=== PATIENT | female | born 1945 | race Caucasian/White ===

== ENCOUNTER 2017-05-21 18:53 | Emergency (ER) | payer OTHER ==
[~2017-05-21] VITALS: Ht 157.5 cm; Wt 67.7 kg
[~2017-05-21 18:53] MED LIST: ASPEC81 PO; ATOR-14 PO; PROP20TA67 PO
[2017-05-21 19:02] VITALS: TEMP 36.8; Ht 157.5 cm; Wt 67.7 kg
[2017-05-21] MEDS ORDERED: GELATIN SPONGE 12-7MM ONE (19:19)
[2017-05-21] MEDS ORDERED: XYLOCAINE 1%/SOD BICARB 20 ML VIAL INFIL ONE ×2 (19:19→19:30)
[2017-05-21] MEDS ORDERED: GELATIN SPONGE 12-7MM EXT ONE (19:30)
[2017-05-21] MEDS ORDERED: DIPHTHERIA/TETANUS/PERTUSSIS 0.5 ML SYR/VIAL IM. ONE (19:56)
[2017-05-21 20:08] VITALS: BP 158/76; PULSE 67; O2SAT 98
--- NOTE | 2017-05-21 21:06 | EMERGENCY ROOM VISIT NOTE ---
ED Visit Note First contact with patient: 19:09 CHIEF COMPLAINT: Finger laceration HISTORY OF PRESENT ILLNESS: This 71-year-old female patient presents to the emergency department after cutting the left first finger with a kitchen knife about 4 hours ago. The patient states that she was making a sandwich when she accidentally cut the very tip of her left thumb. The bleeding has not stopped. Denies weakness or numbness of the finger. The patient has full range of motion of the fingers. The patient rates the pain as dull and 1/10. The patient denies any other injuries. The patient's tetanus shot is not up to date. REVIEW OF SYSTEMS: A 6 system review of systems was completed with positives and pertinent negatives listed in the HPI. ALLERGIES: Erythromycin MEDICATIONS: EMR PMH: No pertinent chronic medical disease SOCIAL HISTORY: Lives locally with family PHYSICAL EXAM: Vital Signs: Reviewed Nurse's notes, vital signs stable. GENERAL : White female, in no acute distress, well developed, well nourished. SKIN: There is a U-shaped 2.6 cm long laceration on the very distal aspect of the left first finger. The edges gape apart with traction. There is no foreign material in the wound and it looks clean. There is slow bleeding. No deep structures such as tendons, bones, or significant blood vessels are seen in the base of the wound. Extension and flexion of the finger is full and strong. Full range of motion of the wrist and other fingers. Capillary refill less than 2 seconds. Normal sensation to light and sharp touch. EMERGENCY DEPARTMENT COURSE: I examined the patient. Verbal consent was obtained to perform the procedure. Using sterile technique the wound was cleansed with Betadine. 4 ml of 1% buffered lidocaine was used to perform a digital block to anesthetize the patient. The area was sterilely draped. Once the patient was anesthetized, the wound was copiously irrigated under pressure with sterile saline. The wound was explored and there were no deep structures injured. The laceration was repaired using 5 simple interrupted 5-0 nylon sutures. The patient tolerated the procedure well. Hemostasis was achieved. The area was cleaned with sterile saline and dressed with bacitracin ointment and bandage. The patient was given a tetanus booster. The patient was discharged home in good condition. Current/Historical Medications Scheduled Aspirin Enteric Coated (Ecotrin Or Generic *), 81 MG PO QAM Atorvastatin (Lipitor), 10 MG PO DAILY Propranolol (Inderal), 40 MG PO DAILY Propranolol (Inderal), 20 MG PO HS Allergies Coded Allergies: Erythromycin (Verified Allergy, Mild, 09/10/11) Vital Signs Date Time Temp Pulse Resp B/P (MAP) Pulse Ox O2 Delivery O2 Flow Rate FiO2 05/21/17 20:08 67 20 158/76 98 05/21/17 19:02 36.8 78 18 115/64 97 Room Air Medications Administered Medications (Trade) Dose Ordered Sig/Ivonne Route Start Time Stop Time Status Last Admin Dose Admin Diphtheria/ Pertussis/Tetanus Vacc (Adacel Inj) 0.5 ml STK-MED ONCE IM. 05/21/17 19:56 05/21/17 19:57 DC 05/21/17 19:58 0.5 ML Departure Information Impression Primary Impression: Laceration of thumb Dispostion Home / Self-Care Condition GOOD Forms HOME CARE DOCUMENTATION FORM, IMPORTANT VISIT INFORMATION Patient Instructions [facility], ED Laceration All, ED Scar Tips to Minimize Additional Instructions Keep wound clean and dry. Do not allow any crusting or dried blood to accumulate on sutures. If this occurs, use a mild soap/water on a Q-tip to clean the wound. Do not use Peroxide to clean the wound as this can delay healing Use an antibiotic ointment like Bacitracin for 3-4 days, then let wound dry. You may bathe and shower as normal, but DO NOT SOAK the wound. Suture removal in about 8 days with your Family Doctor or in the ER. Return sooner for any signs of infection, increasing redness, swelling, or drainage.
== END 2017-05-21 20:10 | disposition home or self-care (01) ==
LOC: C.EDB 18:55 → C.EDD 20:10
DX: S61.012A Laceration without foreign body of left thumb without damage to nail, initial encounter (principal); W26.0XXA Contact with knife, initial encounter; Y93.G1 Activity, food preparation and clean up; Z88.1 Allergy status to other antibiotic agents; Z79.82 Long term (current) use of aspirin; Z79.899 Other long term (current) drug therapy; Z23 Encounter for immunization

== ENCOUNTER 2021-02-08 13:25 | Inpatient (IN) ==
--- NOTE | 2021-02-08 13:50 | Emergency Department Note ---
Impression & Plan Substernal chest pain ED Provider Note Name: PARRIS BRISENO Age: 75 Sex: F Arrives Via: Ambulance Informant: Patient ED Provider: Bruce Reynoso MD Chief Complaint: chest pain Impression: Substernal Chest Pain Medical Decision Makin yr old female with history GERD, HLP, reactive hypoglycemia and previous Vtach with ablation 2 to 3 years ago. No history of CAD nor previous stenting. She arrives after episode chest pressure with radiation to neck prior to arrival with improvement prior to getting here. Already had ASA 324mg PO at home. EKG with lateral depressions without STEMI findings. CXR clear, labs unremarkable and trop negative. She is not short of breath, not tachy, and not hypoxic with no DVT risks/findings. With findings will need cardiac rule out and hospitalist consulted. I do not feel this is consistent with dissection given resolution of symptoms. On repeat eval she notes some mild epigastric unsettled without signi ficant pain nor radiation and has soft non-tender abdomen. Hospitalist in to evaluate further. Prior Medical Record and Triage/Nursing Notes reviewed by Me Additional history obtained from chart Differentials:Cardiac ischemia, aortic dissection, pulmonary embolism, pneumothorax, pneumonia, pericarditis, myocarditis, esophageal rupture, GERD, cholecystitis, pancreatitis, musculoskeletal, as well as other pathologies. Vital Signs: reviewed and remarkable for no significant abnormalities Labs:Reviewed and remarkable for no significant abnormalities Imaging:See Below EKG:Per My Interpretation: Indication Chest pain: NSR 75 bpm, qtc 439 with intraventricular block. No Ectopy. No Ischemia. Compared to EKG 09/11/11 lateral T wave inversions have improved. Cardiac/Tele Monitoring: Cardiac Monitoring: An Order was placed for continuous cardiac monitoring. The monitor shows a rate of 70 with a normal sinus rhythm. Consults:Dr Konrad Nix Hospitalist Plan: Disposition:Hospitalization. Condition: Good History of Present Illness:75 yr old female arrives for evaluation of chest pain. Patient with episode crushing substernal chest pressure at 11:45am this morning. Symptoms ongoing for 10-15 minutes before resolving. Associated with radiation to neck and upper abdomen. No nausea, vomiting, syncope, palp itations, nor other symptoms. No history of similar symptoms. This occurred at rest and was not associated with exertion. She took 325mg PO ASA prior to arrival. History Vtach s/p ablation 2 to 3 years ago. No history CAD nor stenting. She notes multiple family members with cardiac disease. Patient previous smoker ROS: See above HPI for pertinent positives & negatives. A total of 10 systems reviewed and were otherwise negative. Past Medical History:Vtach, Hyperlipidemia, Anxiety Past Surgical History:Heart Cath Family History:CAD Social History:Retired, ex tobacco user Home Medications:See Below Allergies:Erythromycin Vitals:Blood Pressure: 147/79, Pulse 79, RR 22, T 37.5C, O2 98% on RA Physical Exam: GENERAL: Patient is anxious appearing and in minimal distress. EYES: No scleral icterus, unremarkable pupils. ENT: Mucous membranes moist, no nasal congestion. NECK: No masses appreciated, nomeningismus, trachea is midline. RESPIRATORY: No dyspnea. Clear to auscultation and equal bilaterally. No wheeze, no rhonchi. CARDIOVASCULAR: Regular rate and rhythm.No murmurs, rubs, gallops appreciated. GASTROINTESTINAL: Abdomen soft, non-tender, no peritonitis.Bowel sounds positive.No masses appreciated. BACK: No midline tenderness, no CVA tenderness EXTREMITIES: Normal motion all extremities, no cyanosis, no edema. NEUROLOGIC: Alert and oriented, no acute motor or sensory deficits, no focal weakness, cranial nerves grossly intact. SKIN: No rash, no jaundice, no diaphoresis. PSYCH: Appropriate GCS: 15 ED Course: Times/Reassessments: stable, feeling well. Vague epigastric fullness without other symptoms and unremarkable findings. Bruce Reynoso MD Past Med/Surg History Medical History Depression Dyslipidemia GERD (gastroesophageal reflux disease) Mitral valve prolapse Reactive hypoglycemia Ventricular ectopic complex Surgical History History of cardiac catheterization History of cardiac radiofrequency ablation History of D&C History of lumbar spinal fusion Social History (Updated 02/08/21 @ 17:32 by Destini Pitts PA-C) Smoking Status: Former smoker Tobacco Type: Cigarettes Hx Alcohol Use: No Hx Substance Use: No Preferred Language: Congolese Communication Ability: Effective Agriculturist Required: No Beliefs That Will Affect Care: None Current Living Situation: Spouse Other Information That Helps Us Care for You: No Feels Safe at Home: Yes Safety Concerns: Feels Safe At This Time Assistive Devices: Glasses Allergies Allergies Allergy/AdvReac Type Severity Reaction Status Date / Time erythromycin base Allergy Mild Verified 02/08/21 16:02 Home Meds Home Medications Medication Instructions Recorded Confirmed aspirin 81 mg tablet,delayed 81 mg PO DAILY 02/08/21 02/08/21 release cholecalciferol (vitamin D3) 50 50 mcg PO DAILY 02/08/21 02/08/21 mcg (2,000 unit) tablet diltiazem HCl 120 mg 120 mg PO DAILY 02/08/21 02/08/21 capsule,extended release 24 hr flecainide 100 mg tablet 100 mg PO BID 02/08/21 02/08/21 losartan 50 mg tablet 50 mg PO DAILY 02/08/21 02/08/21 magnesium oxide 400 mg PO DAILY 02/08/21 02/08/21 melatonin 5 mg tablet 5 mg PO HS 02/08/21 02/08/21 oxycodone 5 mg tablet 2.5 mg PO Q6H PRN 02/08/21 02/08/21 pravastatin 40 mg tablet 20 mg PO BID 02/08/21 02/08/21 riboflavin (vitamin B2) 400 mg 400 mg PO DAILY 02/08/21 02/08/21 tablet sertraline 25 mg tablet 25 mg PO QPM 02/08/21 02/08/21 sertraline 50 mg tablet 50 mg PO QPM 02/08/21 02/08/21 Results & Data (ED) Vital Signs Vital Signs - 24 hr 02/08/21 13:25 02/08/21 13:56 02/08/21 15:00 Temperature 37.5 C Temperature Source Oral Pulse Rate 79 Pulse Rate [Right Finger] 78 Pulse Rate from SpO2 Sensor Respiratory Rate 22 18 Blood Pressure 147/79 H Blood Pressure [Right Arm] 115/74 Blood Pressure Mean 101 Blood Pressure Mean [Right Arm] 87 Blood Pressure Position [Right Arm] Sitting Pulse Oximetry 98 96 Oxygen Delivery Method Room Air Room Air Room Air Sepsis Recent Fever Within 48 Hours No Sepsis New/Unexplained Change in Mental Status No Sepsis Action Taken by Nursing No Action Required 02/08/21 16:05 Temperature Temperature Source Pulse Rate Pulse Rate [Right Finger] Pulse Rate from SpO2 Sensor 82 Respiratory Rate 17 Blood Pressure 119/61 Blood Pressure [Right Arm] Blood Pressure Mean 80 Blood Pressure Mean [Right Arm] Blood Pressure Position [Right Arm] Pulse Oximetry 98 Oxygen Delivery Method Sepsis Recent Fever Within 48 Hours Sepsis New/Unexplained Change in Mental Status Sepsis Action Taken by Nursing Laboratory Data Result diagrams: 02/08/21 14:06 02/08/21 14:44 Lab Results 02/08/21 02/08/21 02/08/21 Range/Units 14:06 14:06 14:06 WBC 10.97 H (4.8-10.8) K/uL RBC 3.98 L (4.2-5.4) M/uL Hgb 13.1 (12.0-16.0) g/dL Hct 39.3 (37-47) % MCV 98.7 (80-100) fL MCH 32.9 (25-34) pg MCHC 33.3 (32-36) g/dL RDW Std Deviation 46.2 (36.4-46.3) fL RDW Coeff of Pamela 12.7 (11.5-14.5) % Plt Count 295 (130-400) K/uL MPV 9.6 (7.4-10.4) fL Immature Gran % (Auto) 0.3 % Neut % (Auto) 65.3 % Lymph % (Auto) 24.1 % [place] % (Auto) 9.4 % Eos % (Auto) 0.8 % Baso % (Auto) 0.1 % Neut # (Auto) 7.17 H (1.4-6.5) K/uL Lymph # (Auto) 2.64 (1.2-3.4) K/uL [place] # (Auto) 1.03 H (0.11-0.59) K/uL Eos # (Auto) 0.09 (0-0.5) K/uL Baso # (Auto) 0.01 (0-0.2) K/uL Immature Gran # (Auto) 0.03 H (0.00-0.02) K/uL PT Cancelled INR Cancelled Sodium 137 (136-145) mmol/L Potassium (3.5-5.1) mmol/L Chloride 107 (98-107) mmol/L Carbon Dioxide 23 (21-32) mmol/L Anion Gap 8.0 (3-11) BUN 30 H (7-18) mg/dl Creatinine 0.90 (0.6-1.2) mg/dl Est Cr Clr Drug Dosing 47.8 ml/min Est GFR ( Amer) 72.5 ml/min Est GFR (Non-Af Amer) 62.5 ml/min BUN/Creatinine Ratio 33.0 H (10-20) Glucose 94 (70-99) mg/dl Calcium 8.8 (8.5-10.1) mg/dl Magnesium (1.8-2.4) mg/dl Total Bilirubin 0.4 (0.2-1) mg/dl Direct Bilirubin (0-0.2) mg/dl AST (15-37) U/L ALT 31 (12-78) U/L Alkaline Phosphatase 71 (45-117) U/L Troponin I < 0.015 (0-0.045) ng/ml Total Protein 6.7 (6.4-8.2) gm/dl Albumin 3.3 L (3.4-5.0) gm/dl Lipase 230 (73-393) U/L COVID-19 Eval Order SARS-CoV-2 (PCR) (Negative) 02/08/21 02/08/21 02/08/21 Range/Units 14:06 14:06 14:41 WBC (4.8-10.8) K/uL RBC (4.2-5.4) M/uL Hgb (12.0-16.0) g/dL Hct (37-47) % MCV (80-100) fL MCH (25-34) pg MCHC (32-36) g/dL RDW Std Deviation (36.4-46.3) fL RDW Coeff of Pamela (11.5-14.5) % Plt Count (130-400) K/uL MPV (7.4-10.4) fL Immature Gran % (Auto) % Neut % (Auto) % Lymph % (Auto) % [place] % (Auto) % Eos % (Auto) % Baso % (Auto) % Neut # (Auto) (1.4-6.5) K/uL Lymph # (Auto) (1.2-3.4) K/uL [place] # (Auto) (0.11-0.59) K/uL Eos # (Auto) (0-0.5) K/uL Baso # (Auto) (0-0.2) K/uL Immature Gran # (Auto) (0.00-0.02) K/uL PT 10.0 INR 1.0 Sodium (136-145) mmol/L Potassium (3.5-5.1) mmol/L Chloride (98-107) mmol/L Carbon Dioxide (21-32) mmol/L Anion Gap (3-11) BUN (7-18) mg/dl Creatinine (0.6-1.2) mg/dl Est Cr Clr Drug Dosing ml/min Est GFR ( Amer) ml/min Est GFR (Non-Af Amer) ml/min BUN/Creatinine Ratio (10-20) Glucose (70-99) mg/dl Calcium (8.5-10.1) mg/dl Magnesium (1.8-2.4) mg/dl Total Bilirubin (0.2-1) mg/dl Direct Bilirubin (0-0.2) mg/dl AST (15-37) U/L ALT (12-78) U/L Alkaline Phosphatase (45-117) U/L Troponin I (0-0.045) ng/ml Total Protein (6.4-8.2) gm/dl Albumin (3.4-5.0) gm/dl Lipase (73-393) U/L COVID-19 Eval Order Covid19 at [facility] SARS-CoV-2 (PCR) NEGATIVE (Negative) 02/08/21 Range/Units 14:44 WBC (4.8-10.8) K/uL RBC (4.2-5.4) M/uL Hgb (12.0-16.0) g/dL Hct (37-47) % MCV (80-100) fL MCH (25-34) pg MCHC (32-36) g/dL RDW Std Deviation (36.4-46.3) fL RDW Coeff of Pamela (11.5-14.5) % Plt Count (130-400) K/uL MPV (7.4-10.4) fL Immature Gran % (Auto) % Neut % (Auto) % Lymph % (Auto) % [place] % (Auto) % Eos % (Auto) % Baso % (Auto) % Neut # (Auto) (1.4-6.5) K/uL Lymph # (Auto) (1.2-3.4) K/uL [place] # (Auto) (0.11-0.59) K/uL Eos # (Auto) (0-0.5) K/uL Baso # (Auto) (0-0.2) K/uL Immature Gran # (Auto) (0.00-0.02) K/uL PT INR Sodium (136-145) mmol/L Potassium 4.5 (3.5-5.1) mmol/L Chloride (98-107) mmol/L Carbon Dioxide (21-32) mmol/L Anion Gap (3-11) BUN (7-18) mg/dl Creatinine (0.6-1.2) mg/dl Est Cr Clr Drug Dosing ml/min Est GFR ( Amer) ml/min Est GFR (Non-Af Amer) ml/min BUN/Creatinine Ratio (10-20) Glucose (70-99) mg/dl Calcium (8.5-10.1) mg/dl Magnesium 2.6 H (1.8-2.4) mg/dl Total Bilirubin (0.2-1) mg/dl Direct Bilirubin < 0.1 (0-0.2) mg/dl AST 22 (15-37) U/L ALT (12-78) U/L Alkaline Phosphatase (45-117) U/L Troponin I (0-0.045) ng/ml Total Protein (6.4-8.2) gm/dl Albumin (3.4-5.0) gm/dl Lipase (73-393) U/L COVID-19 Eval Order SARS-CoV-2 (PCR) (Negative) Administered Medications Discontinued Medications Oxycodone HCl (Oxycodone Hcl Ir 5 Mg Tab (Immediate Release)) 2.5 mg PO NOW STA Stop: 02/08/21 14:15 Last Admin: 02/08/21 14:34 Dose: 2.5 mg Documented by: [id number] Imaging Data Radiologist's Impression: Chest X-Ray 02/08/21 13:44 XR chest 1V portable HISTORY: Atypical chest pain COMPARISON: Chest CT 11/20/2012. FINDINGS: Mild biapical pleural thickening, unchanged. The cardiac silhouette remains top normal in size. No pneumothorax. No pleural effusions. No focal lung consolidations to suggest pneumonia. No evidence for pulmonary edema. IMPRESSION: No acute process. ACT 112: Negative or not required by law. Electronically signed by: John Schuster M.D. 02/08/2021 2:23 PM Discharge Plan Visit Data Chief Complaint: Chest Pain Stated Complaint: CHEST PAIN ED Provider: Bruce Reynoso Discharge Problem: Substernal chest pain
[2021-02-08 14:14] LABS: Basophils # (auto) 0.01 K/uL (0-0.2); Basophils % (auto) 0.1 %; Eosinophils # (auto) 0.09 K/uL (0-0.5); Eosinophils % (auto) 0.8 %; Hematocrit (blood only) 39.3 % (37-47); Hemoglobin 13.1 g/dL (12.0-16.0); Immature Granulocytes # (auto) 0.03 K/uL (0.00-0.02); Immature Granulocytes % (auto) 0.3 %; Lymphocytes # (auto) 2.64 K/uL (1.2-3.4); Lymphocytes % (auto) 24.1 %; Mean Corpuscular Hemoglobin 32.9 pg (25-34); Mean Corpuscular Hgb Conc 33.3 g/dL (32-36); Mean Corpuscular Volume 98.7 fL (80-100); Mean Platelet Volume 9.6 fL (7.4-10.4); Monocytes # (auto) 1.03 K/uL (0.11-0.59); Monocytes % (auto) 9.4 %; Neutrophils # (auto) 7.17 K/uL (1.4-6.5); Neutrophils % (auto) 65.3 %; Platelet Count 295 K/uL (130-400); RDW Coefficient of Variation 12.7 % (11.5-14.5); RDW Standard Deviation 46.2 fL (36.4-46.3); Red Blood Count 3.98 M/uL (4.2-5.4); White Blood Count 10.97 K/uL (4.8-10.8)
[2021-02-08] MEDS ORDERED: oxyCODONE HCL IR 5 MG TAB (IMMEDIATE RELEASE) PO STA (14:14)
--- NOTE | 2021-02-08 14:25 | XRay Report ---
XR chest 1V portable HISTORY: Atypical chest pain COMPARISON: Chest CT 11/20/2012. FINDINGS: Mild biapical pleural thickening, unchanged. The cardiac silhouette remains top normal in s ize. No pneumothorax. No pleural effusions. No focal lung consolidations to suggest pneumonia. No kevin dence for pulmonary edema. IMPRESSION: No acute process. ACT 112: Negative or not required by law. Electronically signed by: John Schuster M.D. 02/08/2021 2:23 PM
[2021-02-08 14:43] LABS: Alanine Aminotransferase 31 U/L (12-78); Albumin Level 3.3 gm/dl (3.4-5.0); Alkaline Phosphatase 71 U/L (45-117); Bilirubin,Total 0.4 mg/dl (0.2-1); Blood Urea Nitrogen 30 mg/dl (7-18); Calcium 8.8 mg/dl (8.5-10.1); Carbon Dioxide 23 mmol/L (21-32); Chloride 107 mmol/L (98-107); Creatinine Clr Calc Pharmacy 47.8 ml/min; Est GFR (African American) 72.5 ml/min; Est GFR (Non-African American) 62.5 ml/min; Glucose 94 mg/dl (70-99); Lipase 230 U/L (73-393); Sodium 137 mmol/L (136-145); Total Protein 6.7 gm/dl (6.4-8.2); Troponin I < 0.015 ng/ml (0-0.045)
[2021-02-08 15:07] LABS: Potassium 4.5 mmol/L (3.5-5.1)
[2021-02-08 15:11] LABS: Aspartate Aminotransferase 22 U/L (15-37); Bilirubin Direct < 0.1 mg/dl (0-0.2); Magnesium 2.6 mg/dl (1.8-2.4)
--- NOTE | 2021-02-08 17:37 | History & Physical Report ---
Date of Service February 08, 2021 Assessment & Plan (1) Chest pain: (2) Ventricular ectopic complex: (3) Depression: (4) GERD (gastroesophageal reflux disease): (5) Dyslipidemia: (6) Mitral valve prolapse: (7) Reactive hypoglycemia: Plan: Due to cardiac history and new episode of chest pain today, will admit patient for cardiac monitoring overnight. - Observe on telemetry - Repeat EKG in AM - Serial troponins - Labs in AM - ECHO - Consult cardiology for additional recommendations - Continue home medications as appropriate Pt seen and reviewed with attending physician, Dr. Silvestre. Plan of care discussed and as outlined above. Code Status: Full Code DVT Prophylaxis: Gabby Pitts PA-C Admission and Anticipated Discharge Date Admission Date: 75 yo Lady with PMH of...... History of Present Illness Chief Complaint: Chest Pain Primary Care Provider: Lara Chen MD This is a 75 y/o female with a PMH of complex ventricular ectopy, migraine, dyslipidemia, GERD, reactive hypoglycemia, panic attacks, and depression who pr esents to the ED today via EMS for an episode of crushing substernal chest pain. Pt has a history of ventricular ectopy, which she has followed with cardiology for many years and reports at least two prior ablations - follows with Dr. Villarela with last visit in Nov and was doing well. This morning, she woke up feeling well. She was sitting at home, working online and listening to her talk when she developed crushing chest pain/pressure that she describes as severe. She does note that she was aggravated with her at the time that this started and she is unsure if she is related. Pain radiated to her bilateral neck/jaw and to her upper abdomen. She describes it as "an elephant sitting on my chest." She does have a history of panic attacks in the 1990s but has been doing well for the past twenty years. Today's chest pain does not feel similar to prior panic attacks, at least that she can recall. She took aspirin 325 mg x 1 and called EMS. The pain lasted about 20-30 minutes total - she does not recall anything specific that caused it to go away. She denies associated shortness of breath, dizziness, diaphoresis, palpitations. Cardiac cath in 2016 showed "the coronary arteries have diffuse minor irregularities. Mid LAD with non-obstructive 30% lesion followed by a 50% lesion past the diagonal branch." ECHO in Feb 2020 showed LV EF 55-59%, mildly abnormal LV diastolic dysfunction, mild aortic regurgitation, anterior MV leaflet is mildly thickened, mild posterior mitral leaflet prolapse, mild MR, mild TR, no pulm HTN. Currently chest pain has resolved but she feels a "residual presence" in the upper abdomen. No N/V/D. Allergies Allergy/AdvReac Type Severity Reaction Status Date / Time erythromycin base Allergy Mild Verified 02/08/21 16:02 Home Medications Medication Instructions Recorded Confirmed Type aspirin 81 mg tablet,delayed 81 mg PO DAILY 02/08/21 02/08/21 History release cholecalciferol (vitamin D3) 50 50 mcg PO DAILY 02/08/21 02/08/21 History mcg (2,000 unit) tablet diltiazem HCl 120 mg 120 mg PO DAILY 02/08/21 02/08/21 History capsule,extended release 24 hr flecainide 100 mg tablet 100 mg PO BID 02/08/21 02/08/21 History losartan 50 mg tablet 50 mg PO DAILY 02/08/21 02/08/21 History magnesium oxide 400 mg PO DAILY 02/08/21 02/08/21 History melatonin 5 mg tablet 5 mg PO HS 02/08/21 02/08/21 History oxycodone 5 mg tablet 2.5 mg PO Q6H PRN 02/08/21 02/08/21 History pravastatin 40 mg tablet 20 mg PO BID 02/08/21 02/08/21 History riboflavin (vitamin B2) 400 mg 400 mg PO DAILY 02/08/21 02/08/21 History tablet sertraline 25 mg tablet 25 mg PO QPM 02/08/21 02/08/21 History sertraline 50 mg tablet 50 mg PO QPM 02/08/21 02/08/21 History Past Med/Surg History Medical History Depression Dyslipidemia GERD (gastroesophageal reflux disease) Mitral valve prolapse Reactive hypoglycemia Ventricular ectopic complex Surgical History History of cardiac catheterization History of cardiac radiofrequency ablation History of D&C History of lumbar spinal fusion Social History (Updated 02/08/21 @ 17:32 by Destini Pitts PA-C) Smoking Status: Former smoker Tobacco Type: Cigarettes Hx Alcohol Use: No Hx Substance Use: No Preferred Language: Thai Communication Ability: Effective Steam Cleaner Required: No Beliefs That Will Affect Care: None Current Living Situation: Spouse Other Information That Helps Us Care for You: No Feels Safe at Home: Yes Safety Concerns: Feels Safe At This Time Assistive Devices: Glasses Review of Systems Review of Systems: All systems reviewed & are unremarkable except as noted in HPI & below Constitutional: no fever, no chills, no sweats, no fatigue and no weakness Eyes: no diplopia and no worsening vision Ear, Nose, Mouth, Throat: no nasal congestion, no nasal discharge and no sore throat Respiratory: no cough, no dyspnea and no wheezing Cardiovascular: as per Subjective / HPI; no palpitations, no syncope and no edema Gastrointestinal: as per Subjective / HPI; no nausea, no vomiting, no diarrhea/loose stools and no blood in stools Genitourinary: no dysuria, no urinary frequency, no decreased urination and no hematuria Musculoskeletal: + back pain (chronic but has improved since ESIs last week) Integumentary: no rash and no yellowing of the skin Neurologic: no localized weakness, no paresthesia, no seizure-like activity, no syncope and no headache(s) Psychiatric: as per Subjective / HPI Physical Exam Constitutional: well developed and well nourished; no acute distress Eyes: + anicteric sclerae Neck: trachea midline Respiratory: no respiratory distress and no labored breathing Auscultation: lungs clear to auscultation bilaterally; no rales, no rhonchi and no wheezes Cardiovascular: Rate/Rhythm: regular rate and regular rhythm Heart Sounds: no gallop, no murmur and no cardiac rub Vessels: dorsalis pedis pulses present and radial pulses present Extremities: no calf tenderness and no pedal edema No tenderness on palpation of the chest wall Gastrointestinal (Abdomen): Inspection/Auscultation: normal bowel sounds; abdomen not distended Percussion/Palpation: + abdomen tender (mild epigastric) and abdomen soft Musculoskeletal: Head/Neck/Chest: normocephalic, head atraumatic and neck supple Skin: no rashes, warm and dry Neurologic: moves all extremities; no focal motor deficits Psychiatric: A+Ox3, euthymic affect Results & Data Results & Data ([facility]) Vital Signs (Past 12 Hours) Vital Signs Temp Pulse Pulse Resp BP BP Pulse Ox 02/08/21 15:00 78 18 115/74 96 02/08/21 13:25 37.5 C 79 22 147/79 H 98 Laboratory Results Laboratory Results - last 24 hr 02/08/21 02/08/21 02/08/21 14:06 14:06 14:06 WBC 10.97 H RBC 3.98 L Hgb 13.1 Hct 39.3 MCV 98.7 MCH 32.9 MCHC 33.3 RDW Std Deviation 46.2 RDW Coeff of Pamela 12.7 Plt Count 295 MPV 9.6 Immature Gran % (Auto) 0.3 Neut % (Auto) 65.3 Lymph % (Auto) 24.1 [place] % (Auto) 9.4 Eos % (Auto) 0.8 Baso % (Auto) 0.1 Neut # (Auto) 7.17 H Lymph # (Auto) 2.64 [place] # (Auto) 1.03 H Eos # (Auto) 0.09 Baso # (Auto) 0.01 Immature Gran # (Auto) 0.03 H PT Cancelled INR Cancelled Sodium 137 Potassium Chloride 107 Carbon Dioxide 23 Anion Gap 8.0 BUN 30 H Creatinine 0.90 Est Cr Clr Drug Dosing 47.8 Est GFR ( Amer) 72.5 Est GFR (Non-Af Amer) 62.5 BUN/Creatinine Ratio 33.0 H Glucose 94 Calcium 8.8 Magnesium Total Bilirubin 0.4 Direct Bilirubin AST ALT 31 Alkaline Phosphatase 71 Troponin I < 0.015 Total Protein 6.7 Albumin 3.3 L Lipase 230 COVID-19 Eval Order SARS-CoV-2 (PCR) 02/08/21 02/08/21 02/08/21 14:06 14:06 14:41 WBC RBC Hgb Hct MCV MCH MCHC RDW Std Deviation RDW Coeff of Pamela Plt Count MPV Immature Gran % (Auto) Neut % (Auto) Lymph % (Auto) [place] % (Auto) Eos % (Auto) Baso % (Auto) Neut # (Auto) Lymph # (Auto) [place] # (Auto) Eos # (Auto) Baso # (Auto) Immature Gran # (Auto) PT 10.0 INR 1.0 Sodium Potassium Chloride Carbon Dioxide Anion Gap BUN Creatinine Est Cr Clr Drug Dosing Est GFR ( Amer) Est GFR (Non-Af Amer) BUN/Creatinine Ratio Glucose Calcium Magnesium Total Bilirubin Direct Bilirubin AST ALT Alkaline Phosphatase Troponin I Total Protein Albumin Lipase COVID-19 Eval Order Covid19 at [facility] SARS-CoV-2 (PCR) NEGATIVE 02/08/21 14:44 WBC RBC Hgb Hct MCV MCH MCHC RDW Std Deviation RDW Coeff of Pamela Plt Count MPV Immature Gran % (Auto) Neut % (Auto) Lymph % (Auto) [place] % (Auto) Eos % (Auto) Baso % (Auto) Neut # (Auto) Lymph # (Auto) [place] # (Auto) Eos # (Auto) Baso # (Auto) Immature Gran # (Auto) PT INR Sodium Potassium 4.5 Chloride Carbon Dioxide Anion Gap BUN Creatinine Est Cr Clr Drug Dosing Est GFR ( Amer) Est GFR (Non-Af Amer) BUN/Creatinine Ratio Glucose Calcium Magnesium 2.6 H Total Bilirubin Direct Bilirubin < 0.1 AST 22 ALT Alkaline Phosphatase Troponin I Total Protein Albumin Lipase COVID-19 Eval Order SARS-CoV-2 (PCR) Diagnostic Findings Chest X-ray 02/08/21 - IMPRESSION: No acute process. Medications Administered Discontinued Medications Oxycodone HCl (Oxycodone Hcl Ir 5 Mg Tab (Immediate Release)) 2.5 mg PO NOW STA Stop: 02/08/21 14:15 Last Admin: 02/08/21 14:34 Dose: 2.5 mg Documented by: [id number] Code Status & VTE Plan VTE Prophylaxis Plan VTE Prophylaxis will be ordered: Yes Supervising Physician Co-Signing Physician Notes 75 y/o female with a PMH of complex ventricular ectopy status post ablation x2, heart cath x2, no stents or CABG, migraine, dyslipidemia, GERD, reactive hypoglycemia, panic attacks, and depression who presents to the ED 02/08 via EMS for an episode of crushing substernal chest pain likely result in 20 to 30- minute and patient took aspirin 325 mg. Patient reports improvement/disappearance of her chest pain. Given her cardiac history, will put her on observation, have cardiology see her, trend troponin, EKG in the morning. Upon examination: GENERAL: Alert and oriented x3. NAD, on RA. HEENT: No pallor, no icterus. Pupils equal, round and reactive to light. Oral mucosa moist. NECK: No JVD, no neck masses. HEART: S1 and S2 heard. Regular rate and rhythm. No murmur, no gallop. RESPIRATORY SYSTEM: Normal AP diameter. No accessory muscle use. No wheezing, no crackles. ABDOMEN: Soft, bowel sounds present, nontender, no distention. CENTRAL NERVOUS SYSTEM: Alert and oriented x3. No facial droop. Speech is clear. Obeys simple commands. Moves extremities. EXTREMITIES: No edema, no erythema seen. I have seen and examined the patient and have discussed the case with the provider above. I agree with the assessment and plan as stated.
[2021-02-08] MEDS ORDERED: oxyCODONE HCL IR 5 MG TAB (IMMEDIATE RELEASE) PO PRN (20:31)
[2021-02-08] MEDS ORDERED: NITROGLYCERIN SL 0.4 MG/TAB TAB SL PRN (20:31)
[2021-02-08] MEDS ORDERED: dilTIAZem HCL 120 MG CAPCR PO SCH (20:31)
[2021-02-08] MEDS ORDERED: ACETAMINOPHEN 325 MG TAB PO PRN (20:31)
[2021-02-08] MEDS ORDERED: SERTRALINE HCL 50 MG TABLET PO SCH (21:00)
[2021-02-08] MEDS ORDERED: FLECAINIDE ACETATE 100 MG TABLET PO SCH (21:00)
[2021-02-08] MEDS ORDERED: MELATONIN 3 MG TAB PO SCH (21:30)
[2021-02-08] MEDS ORDERED: NITROGLYCERIN SL 0.4 MG/TAB TAB SL STA (21:54)
[2021-02-08] MEDS ORDERED: Heparin IV Adult Wt-Based Standard *NO* Bolus Protocol ONE (21:55)
--- NOTE | 2021-02-08 21:56 | Communication Note ---
Date of Service: February 08, 2021 Notified of second troponin result 0.673 from 0 Patient with left-sided chest pain complaints relieved by nitroglycerin as per RN. EKG as per my interpretation:Rate 100, NSR, LAD, LAFB, T wave inversion anterolateral leads AP NSTEMI hx CAD as per records Change to full admission Continue home aspirin, statin Rxfor CAD prevention, add IV heparin Await Cardiology input N.p.o. after midnight in anticipation of procedure Will relay to AM provider.
[2021-02-08] MEDS ORDERED: LORazepam 0.25 MG/0.5 ML VIAL IV PRN (21:57)
[2021-02-08] MEDS ORDERED: MoRPHine SULFATE 2 MG/ML CARP IV PRN (21:57)
[2021-02-08] MEDS: SERTRALINE HCL 50 MG TABLET PO SCH (22:07)
[2021-02-08] MEDS: PRAVASTATIN SOD 20 MG TAB PO SCH (22:07)
[2021-02-08] MEDS: LOSARTAN POTASSIUM 50 MG TAB PO SCH (22:09)
[2021-02-08] MEDS ORDERED: HEPARIN SODIUM/DEXTROSE 25,000 UNITS/500 ML BAG IV SCH (22:15)
[2021-02-08 23:06] LABS: Basophils # (auto) 0.01 K/uL (0-0.2); Basophils % (auto) 0.1 %; Eosinophils # (auto) 0.11 K/uL (0-0.5); Eosinophils % (auto) 0.8 %; Hematocrit (blood only) 39.5 % (37-47); Immature Granulocytes # (auto) 0.03 K/uL (0.00-0.02); Immature Granulocytes % (auto) 0.2 %; Lymphocytes # (auto) 2.86 K/uL (1.2-3.4); Lymphocytes % (auto) 20.2 %; Mean Corpuscular Hemoglobin 32.5 pg (25-34); Mean Corpuscular Volume 98.8 fL (80-100); Mean Platelet Volume 9.7 fL (7.4-10.4); Monocytes # (auto) 1.36 K/uL (0.11-0.59); Monocytes % (auto) 9.6 %; Neutrophils # (auto) 9.78 K/uL (1.4-6.5); Neutrophils % (auto) 69.1 %; Platelet Count 311 K/uL (130-400); RDW Coefficient of Variation 12.8 % (11.5-14.5); RDW Standard Deviation 46.3 fL (36.4-46.3); White Blood Count 14.15 K/uL (4.8-10.8)
[2021-02-08 23:09] LABS: Mean Corpuscular Hgb Conc 32.9 g/dL (32-36)
[2021-02-08 23:14] LABS: Partial Thromboplastin Ratio 0.9; Partial Thromboplastin Time 24.2 Seconds (21.0-31.0)
[2021-02-09 04:55] LABS: Basophils # (auto) 0.01 K/uL (0-0.2); Basophils % (auto) 0.1 %; Eosinophils # (auto) 0.11 K/uL (0-0.5); Eosinophils % (auto) 0.9 %; Hematocrit (blood only) 40.8 % (37-47); Hemoglobin 13.6 g/dL (12.0-16.0); Immature Granulocytes # (auto) 0.03 K/uL (0.00-0.02); Immature Granulocytes % (auto) 0.3 %; Lymphocytes # (auto) 3.65 K/uL (1.2-3.4); Lymphocytes % (auto) 30.8 %; Mean Corpuscular Hemoglobin 32.9 pg (25-34); Mean Corpuscular Hgb Conc 33.3 g/dL (32-36); Mean Corpuscular Volume 98.8 fL (80-100); Mean Platelet Volume 9.4 fL (7.4-10.4); Monocytes # (auto) 0.99 K/uL (0.11-0.59); Monocytes % (auto) 8.4 %; Neutrophils # (auto) 7.05 K/uL (1.4-6.5); Neutrophils % (auto) 59.5 %; Platelet Count 303 K/uL (130-400); RDW Coefficient of Variation 12.9 % (11.5-14.5); RDW Standard Deviation 46.8 fL (36.4-46.3); Red Blood Count 4.13 M/uL (4.2-5.4); White Blood Count 11.84 K/uL (4.8-10.8)
[2021-02-09 05:11] LABS: BUN Creatinine Ratio 27.2 (10-20); Calcium 9.4 mg/dl (8.5-10.1); Creatinine Clr Calc Pharmacy 48.4 ml/min; Est GFR (African American) 73.5 ml/min; Est GFR (Non-African American) 63.4 ml/min; Magnesium 2.5 mg/dl (1.8-2.4)
[2021-02-09 05:15] LABS: Partial Thromboplastin Ratio 2.4
[2021-02-09 05:26] LABS: Troponin I 0.44 ng/ml (0-0.045)
[2021-02-09] MEDS: ASPIRIN 81 MG ECTAB PO SCH (08:43)
[2021-02-09] MEDS: MAGNESIUM OXIDE 400 MG TAB PO SCH (08:44)
[2021-02-09] MEDS: PRAVASTATIN SOD 20 MG TAB PO SCH (08:44)
[2021-02-09] MEDS: LOSARTAN POTASSIUM 50 MG TAB PO SCH (08:44)
[2021-02-09] MEDS: CHOLECALCIFEROL 1,000 UNITS 25 MCG TAB PO SCH (08:44)
[2021-02-09] MEDS ORDERED: NON-FORMULARY MEDICATION (Riboflavin (Vitamin B2) 400 mg Tablet) PO SCH (09:00)
--- NOTE | 2021-02-09 09:10 | Electrocardiogram Report ---
Test Reason : Blood Pressure : / mmHG Vent. Rate : 075 BPM Atrial Rate : 075 BPM P-R Int : 186 ms QRS Dur : 128 ms QT Int : 394 ms P-R-T Axes : 062 -31 068 degrees QTc Int : 439 ms Normal sinus rhythm Left axis deviation Nonspecific ST and T wave abnormality Anterolateral leads Non-specific intra-ventricular conduction block Abnormal ECG When compared with ECG of 11-SEP-2011 14:19, Premature ventricular complexes are no longer Present QRS duration has increased T wave inversion no longer evident in Lateral leads Confirmed by Adrian Chand ([id number]) on 02/09/2021 9:10:05 AM Referred By: Confirmed By:Adrian Chand
--- NOTE | 2021-02-09 09:22 | Electrocardiogram Report ---
Test Reason : Blood Pressure : / mmHG Vent. Rate : 100 BPM Atrial Rate : 100 BPM P-R Int : 172 ms QRS Dur : 124 ms QT Int : 368 ms P-R-T Axes : 071 -49 026 degrees QTc Int : 474 ms Normal sinus rhythm Left axis deviation Non-specific intra-ventricular conduction delay Abnormal ECG When compared with ECG of 08-FEB-2021 13:32, Nonspecific T wave abnormality, worse in Inferior leads T wave inversion now evident in Anterolateral leads Confirmed by Adrian Chand ([id number]) on 02/09/2021 9:21:50 AM Referred By: REFERRED SELF Confirmed By:Adrian Chand
--- NOTE | 2021-02-09 09:29 | Electrocardiogram Report ---
Test Reason : Blood Pressure : / mmHG Vent. Rate : 081 BPM Atrial Rate : 081 BPM P-R Int : 196 ms QRS Dur : 124 ms QT Int : 468 ms P-R-T Axes : 058 -42 268 degrees QTc Int : 543 ms Normal sinus rhythm Left axis deviation Non-specific intra-ventricular conduction delay Abnormal ECG When compared with ECG of 08-FEB-2021 22:02, Inverted T waves have replaced nonspecific T wave abnormality in Inferior leads QT has lengthened Confirmed by Adrian Chand ([id number]) on 02/09/2021 9:29:13 AM Referred By: REFERRED SELF Confirmed By:Adrian Chand
--- NOTE | 2021-02-09 10:35 | Cardiology Consultation ---
Date of Consultation February 09, 2021 Assessment & Plan (1) Substernal chest pain: (2) Cardiomyopathy: (3) Elevated troponin: (4) Ventricular ectopic complex: Patient is a 75-year-old female with complex history which includes longstanding history of complex ventricular ectopy status post catheter ablation, prior nonischemic cardiomyopathy with return to normal LV function and prior mild nonobstructive coronary disease by past cardiac catheterization. Patient presents this admission having developed sudden onset severe substernal chest pain relieved by sublingual nitroglycerin. EKG demonstrates nonspecific interventricular conduction delay with superimposed new T wave inversions anterolaterally. Troponin moderately elevated and echocardiogram demonstrates new LV dysfunction and apical ballooning pattern. Plan: Hold diltiazem and flecainide with contraindications with current findings including QT prolongation We will schedule diagnostic coronary angiography today procedure and risks explained in detail to the patient. Plan to define coronary anatomy exclude acute ischemic injury Further recommendations after testing History of Present Illness Reason for Consultation: Chest pain, elevated troponin, LV dysfunction Requesting Physician: Dr. 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 Nonischemic cardiomyopathy with return to normal LV systolic function by last echocardiogram February 2020 3. Mild nonobstructive coronary atherosclerosis by cardiac catheterization most recent March 2015 4. Mild mitral valve prolapse. 5. Lumbar spinal stenosis status post injection therapy Patient presents this admission noting no recent change in cardiac status is a day of admission when she developed sudden onset severe chest pressure pain discomfort "elephant sitting on my chest". Symptoms were relieved promptly with sublingual nitroglycerin. Patient has remained asymptomatic since admission EKGs with significant ST segment abnormalities with marked T wave inversion anterolaterally superimposed on nonspecific intermittent conduction delay, troponin elevated Echocardiogram demonstrates diffuse hypokinesis with basal sparing and severe LV dysfunction. Patient denies any recent dizziness lightheadedness syncope or near syncope. Notes no fevers chills or unexplained infections. Notes no acute emotional stress or strain. Back pain issues been ongoing but recently improved after injection therapy. No bleeding difficulties. No contrast allergies or difficulties with sedation. Has lost approximately 20 pounds which she attributes to dietary restriction. No sleep disruption No recent arrhythmia issues. No prior history of myocardial infarction or angina. No signs or symptoms of congestive heart failure orthopnea PND or peripheral Allergies Allergy/AdvReac Type Severity Reaction Status Date / Time erythromycin base Allergy Mild Verified 02/08/21 16:02 Home Medications Medication Instructions Recorded Confirmed Type aspirin 81 mg tablet,delayed 81 mg PO DAILY 02/08/21 02/08/21 History release cholecalciferol (vitamin D3) 50 50 mcg PO DAILY 02/08/21 02/08/21 History mcg (2,000 unit) tablet diltiazem HCl 120 mg 120 mg PO DAILY 02/08/21 02/08/21 History capsule,extended release 24 hr flecainide 100 mg tablet 100 mg PO BID 02/08/21 02/08/21 History losartan 50 mg tablet 50 mg PO DAILY 02/08/21 02/08/21 History magnesium oxide 400 mg PO DAILY 02/08/21 02/08/21 History melatonin 5 mg tablet 5 mg PO HS 02/08/21 02/08/21 History oxycodone 5 mg tablet 2.5 mg PO Q6H PRN 02/08/21 02/08/21 History pravastatin 40 mg tablet 20 mg PO BID 02/08/21 02/08/21 History riboflavin (vitamin B2) 400 mg 400 mg PO DAILY 02/08/21 02/08/21 History tablet sertraline 25 mg tablet 25 mg PO QPM 02/08/21 02/08/21 History sertraline 50 mg tablet 50 mg PO QPM 02/08/21 02/08/21 History Patient History Medical History Depression Dyslipidemia GERD (gastroesophageal reflux disease) Mitral valve prolapse Reactive hypoglycemia Ventricular ectopic complex Surgical History History of cardiac catheterization History of cardiac radiofrequency ablation History of D&C History of lumbar spinal fusion Social History (Updated 02/08/21 @ 17:32 by Destini Pitts PA-C) Smoking Status: Former smoker Tobacco Type: Cigarettes Hx Alcohol Use: No Hx Substance Use: No Preferred Language: Montserratian Communication Ability: Effective Grain Spouter Required: No Beliefs That Will Affect Care: None Current Living Situation: Spouse Other Information That Helps Us Care for You: No Feels Safe at Home: Yes Safety Concerns: Feels Safe At This Time Assistive Devices: Glasses Review of Systems Review of Systems: All systems reviewed & are unremarkable except as noted in HPI & below Physical Exam Constitutional: + thin; no acute distress Eyes: PERRL, conjunctivae normal, anicteric sclerae ENMT: external ear and nose normal, oropharynx normal Neck: trachea midline, no thyromegaly Respiratory: normal respiratory effort, lungs clear to auscultation Cardiovascular: Rate/Rhythm: regular rate and regular rhythm Heart Sounds: normal S1 and normal S2; no gallop and no murmur Palpation: normal PMI Vessels: normal carotid upstroke and radial pulses present; no JVD and no carotid bruit Extremities: no edema Gastrointestinal (Abdomen): normal bowel sounds, soft, nontender, no hepatosplenomegaly Musculoskeletal: no cyanosis or clubbing, extremities motor strength 5/5 Skin: no rashes, warm and dry Neurologic: PERRL, EOMI, accommodation nl, no face palsy, no dysarthria Psychiatric: A+Ox3, euthymic affect Results & Data ([facility]) Vital Signs (Past 12 Hours) Vital Signs Temp Pulse Resp BP Pulse Ox 02/09/21 08:35 36.7 C 83 15 109/66 98 02/09/21 02:58 37.0 C 79 18 108/66 96 02/08/21 23:28 85 20 126/77 96 Laboratory Results Laboratory Results - last 24 hr 02/08/21 02/08/21 02/08/21 14:06 14:06 14:06 WBC 10.97 H RBC 3.98 L Hgb 13.1 Hct 39.3 MCV 98.7 MCH 32.9 MCHC 33.3 RDW Std Deviation 46.2 RDW Coeff of Pamela 12.7 Plt Count 295 MPV 9.6 Immature Gran % (Auto) 0.3 Neut % (Auto) 65.3 Lymph % (Auto) 24.1 [place] % (Auto) 9.4 Eos % (Auto) 0.8 Baso % (Auto) 0.1 Neut # (Auto) 7.17 H Lymph # (Auto) 2.64 [place] # (Auto) 1.03 H Eos # (Auto) 0.09 Baso # (Auto) 0.01 Immature Gran # (Auto) 0.03 H PT Cancelled INR Cancelled APTT PTT Ratio Sodium 137 Potassium Chloride 107 Carbon Dioxide 23 Anion Gap 8.0 BUN 30 H Creatinine 0.90 Est Cr Clr Drug Dosing 47.8 Est GFR ( Amer) 72.5 Est GFR (Non-Af Amer) 62.5 BUN/Creatinine Ratio 33.0 H Glucose 94 Calcium 8.8 Magnesium Total Bilirubin 0.4 Direct Bilirubin AST ALT 31 Alkaline Phosphatase 71 Troponin I < 0.015 Total Protein 6.7 Albumin 3.3 L Triglycerides Cholesterol LDL Cholesterol, Calc VLDL Cholesterol, Calc HDL Cholesterol Cholesterol/HDL Ratio Lipase 230 COVID-19 Eval Order SARS-CoV-2 (PCR) 02/08/21 02/08/21 02/08/21 14:06 14:06 14:41 WBC RBC Hgb Hct MCV MCH MCHC RDW Std Deviation RDW Coeff of Pamela Plt Count MPV Immature Gran % (Auto) Neut % (Auto) Lymph % (Auto) [place] % (Auto) Eos % (Auto) Baso % (Auto) Neut # (Auto) Lymph # (Auto) [place] # (Auto) Eos # (Auto) Baso # (Auto) Immature Gran # (Auto) PT 10.0 INR 1.0 APTT PTT Ratio Sodium Potassium Chloride Carbon Dioxide Anion Gap BUN Creatinine Est Cr Clr Drug Dosing Est GFR ( Amer) Est GFR (Non-Af Amer) BUN/Creatinine Ratio Glucose Calcium Magnesium Total Bilirubin Direct Bilirubin AST ALT Alkaline Phosphatase Troponin I Total Protein Albumin Triglycerides Cholesterol LDL Cholesterol, Calc VLDL Cholesterol, Calc HDL Cholesterol Cholesterol/HDL Ratio Lipase COVID-19 Eval Order Covid19 at [facility] SARS-CoV-2 (PCR) NEGATIVE 02/08/21 02/08/21 02/08/21 14:44 20:35 22:33 WBC 14.15 H RBC 4.00 L Hgb 13.0 Hct 39.5 MCV 98.8 MCH 32.5 MCHC 32.9 RDW Std Deviation 46.3 RDW Coeff of Pamela 12.8 Plt Count 311 MPV 9.7 Immature Gran % (Auto) 0.2 Neut % (Auto) 69.1 Lymph % (Auto) 20.2 [place] % (Auto) 9.6 Eos % (Auto) 0.8 Baso % (Auto) 0.1 Neut # (Auto) 9.78 H Lymph # (Auto) 2.86 [place] # (Auto) 1.36 H Eos # (Auto) 0.11 Baso # (Auto) 0.01 Immature Gran # (Auto) 0.03 H PT INR APTT PTT Ratio Sodium Potassium 4.5 Chloride Carbon Dioxide Anion Gap BUN Creatinine Est Cr Clr Drug Dosing Est GFR ( Amer) Est GFR (Non-Af Amer) BUN/Creatinine Ratio Glucose Calcium Magnesium 2.6 H Total Bilirubin Direct Bilirubin < 0.1 AST 22 ALT Alkaline Phosphatase Troponin I 0.673 H* Total Protein Albumin Triglycerides Cholesterol LDL Cholesterol, Calc VLDL Cholesterol, Calc HDL Cholesterol Cholesterol/HDL Ratio Lipase COVID-19 Eval Order SARS-CoV-2 (PCR) 02/08/21 02/09/21 02/09/21 22:33 04:48 04:48 WBC 11.84 H RBC 4.13 L Hgb 13.6 Hct 40.8 MCV 98.8 MCH 32.9 MCHC 33.3 RDW Std Deviation 46.8 H RDW Coeff of Pamela 12.9 Plt Count 303 MPV 9.4 Immature Gran % (Auto) 0.3 Neut % (Auto) 59.5 Lymph % (Auto) 30.8 [place] % (Auto) 8.4 Eos % (Auto) 0.9 Baso % (Auto) 0.1 Neut # (Auto) 7.05 H Lymph # (Auto) 3.65 H [place] # (Auto) 0.99 H Eos # (Auto) 0.11 Baso # (Auto) 0.01 Immature Gran # (Auto) 0.03 H PT 10.0 INR 1.0 APTT 24.2 PTT Ratio 0.9 Sodium 139 Potassium 5.0 Chloride 109 H Carbon Dioxide 28 Anion Gap 2.0 L BUN 24 H Creatinine 0.89 Est Cr Clr Drug Dosing 48.4 Est GFR ( Amer) 73.5 Est GFR (Non-Af Amer) 63.4 BUN/Creatinine Ratio 27.2 H Glucose 112 H Calcium 9.4 Magnesium 2.5 H Total Bilirubin Direct Bilirubin AST ALT Alkaline Phosphatase Troponin I 0.440 H* Total Protein Albumin Triglycerides 67 Cholesterol 208 H LDL Cholesterol, Calc 120 VLDL Cholesterol, Calc 13 HDL Cholesterol 75 Cholesterol/HDL Ratio 3 Lipase COVID-19 Eval Order SARS-CoV-2 (PCR) 02/09/21 04:48 WBC RBC Hgb Hct MCV MCH MCHC RDW Std Deviation RDW Coeff of Pamela Plt Count MPV Immature Gran % (Auto) Neut % (Auto) Lymph % (Auto) [place] % (Auto) Eos % (Auto) Baso % (Auto) Neut # (Auto) Lymph # (Auto) [place] # (Auto) Eos # (Auto) Baso # (Auto) Immature Gran # (Auto) PT INR APTT 64.0 H* PTT Ratio 2.4 Sodium Potassium Chloride Carbon Dioxide Anion Gap BUN Creatinine Est Cr Clr Drug Dosing Est GFR ( Amer) Est GFR (Non-Af Amer) BUN/Creatinine Ratio Glucose Calcium Magnesium Total Bilirubin Direct Bilirubin AST ALT Alkaline Phosphatase Troponin I Total Protein Albumin Triglycerides Cholesterol LDL Cholesterol, Calc VLDL Cholesterol, Calc HDL Cholesterol Cholesterol/HDL Ratio Lipase COVID-19 Eval Order SARS-CoV-2 (PCR)
[2021-02-09] MEDS ORDERED: SODIUM CHLORIDE 0.9% 1000ML 1,000 ML IV SCH ×2 (11:00→19:15)
[2021-02-09] MEDS ORDERED: HEPARIN (PORCINE) 1000 UNIT/ML 10 ML (CATH LAB USE ONLY) ONE (12:42)
[2021-02-09] MEDS ORDERED: MIDAZOLAM HCL 1 MG/ML 2ML VIAL ONE ×2 (12:42→13:57)
[2021-02-09] MEDS ORDERED: niCARdipine HCL INJ 2.5 MG/ML 10 ML AMP ONE (12:42)
[2021-02-09] MEDS ORDERED: fentaNYL citrate 100 MCG/2 ML VIAL ONE (12:42)
[2021-02-09] MEDS ORDERED: NITROGLYCERIN/D5W 100MCG/ML 20ML SYR ONE (12:43)
--- NOTE | 2021-02-09 13:32 | Pre Anesthesia Assessment ---
Date of Service February 09, 2021 Pre Sedation Assessment Vital Signs Temp Pulse Pulse Resp BP BP Pulse Ox 02/09/21 12:21 86 17 110/70 100 02/09/21 08:35 36.7 C 83 15 109/66 98 02/09/21 02:58 37.0 C 79 18 108/66 96 02/08/21 23:28 85 20 126/77 96 02/08/21 20:10 36.5 C 90 18 138/76 98 02/08/21 20:00 98 02/08/21 19:00 83 20 120/64 96 02/08/21 18:19 91 H 19 121/65 95 02/08/21 18:17 18 02/08/21 17:01 117/70 02/08/21 16:05 17 119/61 98 02/08/21 15:00 78 18 115/74 96 Pulse Ox 02/09/21 12:21 02/09/21 08:35 02/09/21 02:58 02/08/21 23:28 02/08/21 20:10 98 02/08/21 20:00 02/08/21 19:00 02/08/21 18:19 02/08/21 18:17 02/08/21 17:01 02/08/21 16:05 02/08/21 15:00 Cardiovascular RRR, no murmur, no edema Respiratory normal respiratory effort, lungs clear to auscultation Pre-Sedation Airway Assessment Smoking Status: Former smoker Hx Sleep Apnea: No Short, Thick Neck: No Thyromental Distance: > or= 3.5 Finger Breadths Oral Cavity: + Capped Teeth Mallampati Class: III ASA: ASA3 NPO Status Date of Last Intake of Fluids: 02/08/21 Date of Last Intake of Solid Food: 02/08/21 Procedure Planning Contraindications for Sedation: none Current Medications Reviewed: Yes Notes The planned sedation has been discussed with the patient. Informed Consent was obtained. I have identified the patient, determined the appropriateness of sedation and have assessed the patient immediately prior to the procedure. All medicine(s) and interventions are by my order.
--- NOTE | 2021-02-09 13:37 | Cardiac Catheterization ---
Cardiac Cath Procedure Brief Procedure Date February 09, 2021 Pre-Procedure Diagnosis Pre-Procedure Diagnosis: Non STEMI and Cardiomyopathy AUC Score AUC Score: 7 Post-Procedure Diagnosis Post-Procedure Diagnosis: Severe CAD Procedure(s) Performed Procedure(s) Performed: Coronary Angiography and Left Heart Cath Cider Press Operator Wilmar Santos MD Estimated Blood Loss Estimated Blood Loss: <15cc Medication(s) Medication(s): Fentanyl (12.5 mcg IV), Heparin (2000 units IV), Lidocaine 1% (Local infiltration access site), Nicardipine (250 mcg intra-arterial after arterial sheath insertion) and Versed (1 mg IV) Preliminary Findings Right dominant coronary anatomy Mild diffuse coronary atherosclerosis Single-vessel culprit lesion, 80% mid left anterior descending Coronary angiography: Left main: Long in length normal in caliber with 20% distal taper Left anterior descending: Long type II in distribution. Gives rise to a moderate-sized first diagonal and a large second diagonal branch before continuing to the apex. Within the left anterior descending, there are diffuse luminal irregularities with a 40-50. It gives rise to a conus branch at its origin to small right ventricular branches in its midportion. At the AV groove it gives rise to a long posterior descending artery stenosis proximal to the second diagonal and an 80% stenosis immediately beyond the second diagonal branch. Left circumflex: Moderate caliber, nondominant. It gives rise to obtuse marginal and a posterior lateral branch. There is mild luminal irregularities only Right coronary artery: Large and dominant distribution. It gives rise to a conus branch at its origin, 2 small right ventricular branches in its midportion. At the AV groove it gives rise to a long posterior descending artery and along the AV groove a trivial first posterior ventricular branch and a long terminal posterior ventricular branch which reaches well to the apex. There is mild ectasia and luminal irregularities in the proximal mid right coronary artery. LV angiography: Not performed LV pressure 121/0/15 Catheters: Long 6 Fijian glide radial artery sheath, 5 F[place]ian [place] 5 Fijian straight pigtail Recommendations Recommendations: PCI without planned CABG Anesthesia Start time: 1306, stop time: 1321 Procedural Complication(s) None
--- NOTE | 2021-02-09 13:50 | Cardiac Catheterization ---
Cardiac Cath Procedure Full Procedure Date February 09, 2021 Pre-Procedure Diagnosis Pre-Procedure Diagnosis: Non STEMI and Cardiomyopathy AUC Score AUC Score: 7 Post-Procedure Diagnosis Post-Procedure Diagnosis: Severe CAD Procedure(s) Performed Procedure(s) Performed: Coronary Angiography and Left Heart Cath Flanger Wilmar Santos MD Instrument Technician Apprentice(s) Jen Lynn Estimated Blood Loss Estimated Blood Loss: <15cc Medication(s) Medication(s): Fentanyl (12.5 mcg IV), Heparin (2000 units IV), Lidocaine 1% (Local infiltration access site), Nicardipine (250 mcg intra-arterial after arterial sheath insertion) and Versed (1 mg IV) Summary of Findings Right dominant coronary anatomy Mild diffuse coronary atherosclerosis all vessels Single-vessel culprit disease with long lesion, 50% prior to second diagonal, 80% after in mid left anterior descending Coronary angiography: Left main: Long in length normal in caliber with 20% distal taper Left anterior descending: Long type II in distribution. Gives rise to a moderate-sized first diagonal and a large second diagonal branch before con tinuing to the apex. Within the left anterior descending, there are diffuse luminal irregularities with a 40-50. It gives rise to a conus branch at its origin to small right ventricular branches in its midportion. At the AV groove it gives rise to a long posterior descending artery stenosis proximal to the second diagonal and an 80% stenosis immediately beyond the second diagonal branch. Left circumflex: Moderate caliber, nondominant. It gives rise to 2 small proximal marginal branches, an obtuse marginal and a posterior lateral branch. There is mild luminal irregularities only Right coronary artery: Large and dominant distribution. It gives rise to a conus branch at its origin, 2 small right ventricular branches in its midportion. At the AV groove it gives rise to a long posterior descending artery and along the AV groove a trivial first posterior ventricular branch and a long terminal posterior ventricular branch which reaches well to the apex. There is mild ectasia and luminal irregularities in the proximal mid right coronary artery. LV angiography: Not performed LV pressure 121/0/15 Catheters: Long 6 Nauruan glide radial artery sheath, 5 [place] 5 Nauruan straight pigtail Hemodynamics Rest Ao:: 110/59/83 Final Ao: 122/59/84 LV: 121/0/15 Recommendations Recommendations: PCI without planned CABG Radiation Exposure (mGy) 170 Contrast (mls) 55 Fluids (cc crystalloids) Fluids (cc crystalloids): 45 Anesthesia Start time: 1306, stop time: 1321 Procedural Complication(s) None Disposition PCU I attest to the content of the Intraoperative Record and any orders documented therein. Any exceptions are noted below. [facility] Data: Clinical Dermatologist Cardiac Status Clinical evaluation leading to the procedure 75-year-old female with longstanding history of chronic ventricular ectopy in past nonischemic cardiomyopathy with return to normal LV function who presented having awakened from sleep with rest chest pain relieved by sublingual nitroglycerin. Troponins elevated, new wall motion abnormality involving anterior and apex with diffuse dysfunction CAD Presenation: Non STEMI Anginal Classification: CCS IV Cardiogenic Shock within 24 Hours: No Cardiac Arrest within 24 Hours: No Imaging Studies Past 6 Months: Yes Stress Studies Past 6 Months: No Standard Exercise Test: No Stress Echocardiogram: No Stress Testing w/SPECT MPI: No Cardiac CTA: No Coronary Anatomy Dominant: Right Left Main (% Stenosis): Distal (20) LAD (% Stenosis): Proximal (Mild irregularities) and Mid (50% prior to second diagonal, 80% after) D1 (% Stenosis): Normal D2 (% Stenosis): Normal Circumflex (% Stenosis): Proximal (Mild irregularity) OM1 (% Stenosis): Normal OM2 (% Stenosis): Normal L PL2 (% Stenosis): Normal L PDA (% Stenosis): Normal RCA (% Stenosis): Proximal (Mild ectasia and moderate irregularity) Diagnostic Physicians Name: Wilmar Santos MD Closure Device Recommendations: PCI without planned CABG
[2021-02-09] MEDS ORDERED: CLOPIDOGREL BISULFATE 300 MG TAB ONE (14:25)
--- NOTE | 2021-02-09 14:31 | Post Anesthesia Assessment ---
Date of Service February 09, 2021 Post Sedation Assessment Vital Signs Temp Pulse Pulse Resp BP BP Pulse Ox 02/09/21 12:21 86 17 110/70 100 02/09/21 08:35 98.1 F 83 15 109/66 98 02/09/21 02:58 98.6 F 79 18 108/66 96 02/08/21 23:28 85 20 126/77 96 02/08/21 20:10 97.7 F 90 18 138/76 98 02/08/21 20:00 98 02/08/21 19:00 83 20 120/64 96 02/08/21 18:19 91 H 19 121/65 95 02/08/21 18:17 18 02/08/21 17:01 117/70 02/08/21 16:05 17 119/61 98 02/08/21 15:00 78 18 115/74 96 Pulse Ox 02/09/21 12:21 02/09/21 08:35 02/09/21 02:58 02/08/21 23:28 02/08/21 20:10 98 02/08/21 20:00 02/08/21 19:00 02/08/21 18:19 02/08/21 18:17 02/08/21 17:01 02/08/21 16:05 02/08/21 15:00 Recovery Score Activity: Moves 4 extremities Respiration: Deep Breath/Cough Circulation: +/-20% PreAnes Value Consciousness: Fully Awake Oxygen Saturation: O2 needed for >90% Discharge Sedation Level of Care: Fast Track Phase II Post Sedation Plan On clinical assessment, the patient appears to have tolerated the sedation without complications. Patient is recovering as anticipated. Patient will continue to be monitored by nursing and may be discharged when sedation discharge criteria are met per below protocol. Upon Completions of procedure up to 15 minutes continue every 5 minute vital signs and the P.A.R. score; then discharge to a Phase I or Fast Track to Phase II per the following guidelines: * Discharge Patient to appropriate Phase II area if PAR is 8 or greater or return to pre- procedure baseline. The post - procedure orders will be as directed. * If PAR score is less than 8 or not return to pre-procedure baseline then patient will follow Phase I monitoring till PAR is reached for Phase II. The Phase I may be done in procedure room or may call to secure a Phase I area. * If naloxone or flumazenil are used for reversal, hold in Phase I for continue d monitoring from when last reversal dose was given for a minimum of 60 minutes or longer pending the nurse and/or physician discretion of patient condition before discharge to Phase II. Please call the Sedation Physician to re-evaluate and complete post-note for discharge to Phase II area. Do NOT discharge from procedure sedation or Phase 1 until post- sedation evaluation note is complete by procedure /sedation MD Sedation Discharge Instructions to be given to the patient at discharge to home.
[2021-02-09] MEDS ORDERED: METOPROLOL SUCC 25MG EXT REL TAB PO ONE (14:36)
--- NOTE | 2021-02-09 14:48 | Cardiac Catheterization ---
[facility] Data: Orthopedic Nurse Practitioner Cardiac Status Clinical evaluation leading to the procedure CAD Presenation: Non STEMI Anginal Classification: CCS IV Heart Failure: No Cardiogenic Shock within 24 Hours: No Cardiac Arrest within 24 Hours: No Imaging Studies Past 6 Months: Yes Stress Studies Past 6 Months: No Diagnostic Physicians Name: Josiah Farah MD Status: Elective Closure Device Percutaneous Entry Location: Radial Closure Device: Radial Band Recommendations: PCI without planned CABG PCI Indication: PCI for high risk Non-AUDI Lesion Segment Name: Mid LAD Culprit Artery: Yes Stenosis Prior to Rx (%): 80 Chronic Total Occlusion: No IVUS: No FFR: No Previously Treated Lesion: No Lesion Complexity: Non-High/Non-C Lesion Length (mm): 20 Thrombus Present: Yes Bifurcation Lesion: Yes Guidewire Across Lesion: Stenosis Post-Procedure (%): 0 Post-Procedure MAHAD Flow: 3 Devices(s) Deployed: Yes Yes Intraprocedure Events Significant Disection: No Perforation: No Cardiac Cath Procedure Full Procedure Date February 09, 2021 Pre-Procedure Diagnosis Pre-Procedure Diagnosis: Non STEMI AUC Score AUC Score: 7 Post-Procedure Diagnosis Post-Procedure Diagnosis: Severe CAD and Successful PCI Procedure(s) Performed Procedure(s) Performed: Coronary Angiography, PTCA and Drug Eluting Stent Track Inspecting Supervisor Josiah Farah MD Bag Sewer(s) Jen Lynn Estimated Blood Loss Estimated Blood Loss: 20 Medication(s) Medication(s): Clopidogrel, Fentanyl (12.5 mcg IV), Heparin (2000 units IV), Nicardipine (250 mcg intra-arterial after arterial sheath insertion), Nitroglycerin and Versed (1 mg IV) Summary of Findings Indication: NSTEMI, new LV dysfunction Access: 6 Fr right radial artery Catheters: EBU 3.5 guide Findings: For full details of patient's coronary angiography please see cath report dictated by Dr. Santos. Briefly, patient found to have severe single-vessel disease with long, up to 80% mid LAD stenosis. Decision to proceed with PCI. -- PCI -- Antithrombotic therapy: Heparin, clopidogrel Procedure: Left main cannulated with EBU 3.5 guide Prowater wire passed across lesion into distal vessel Prop Sawyer 50 wire placed into distal detail Mid LAD lesion predilated with 2.5 compliant balloon Dilated lesion stented with 2.75 x 28 mm Xience drug-eluting stent Post stent deployment jailed D2 with nonflow limiting ostial stenosis D2 rewired with new whisper wire. Stent post-dilated with 3.5 noncompliant balloon Ostial/proximal D2 dilated with 2.0 balloon through stent struts IC vasodilators administered for spasm Post procedure MAHAD 3 flow, stent well expanded with minimal residual stenosis. Mild residual ostial stenosis of jailed D2 with MAHAD-3 flow. No other apparent cardiac complications. Arterial Closure: TR band Summary: 1. Successful PCI of mid LAD with single drug-eluting stent (2.75 x 28 mm Xience; postdilated with 3.5 NC). -Ostium of jailed D2 dilated with 2.0 balloon with mild residual stenosis Recommendations: Loaded with clopidogrel 600 mg in Orthopedic Nurse Practitioner Continue dual-antiplatelet therapy for at least 1 year Consult cardiac Rehab Hemodynamics Rest Ao:: 91/45/64 Final Ao: 117/65/89 LV: -- Recommendations Recommendations: PCI without planned CABG Specimens Specimens: None Radiation Exposure (mGy) 427 Contrast (mls) 125 Fluids (cc crystalloids) Fluids (cc crystalloids): 450 Drains Drains: None Anesthesia Start time: 1355, stop time: 1430 Procedural Complication(s) None Disposition PCU I attest to the content of the Intraoperative Record and any orders documented therein. Any exceptions are noted below. [facility] Card Cath Procedure Codes Moderate Sedation Procedure 1: Sedation/Anesthesia: 36591 Mod Sedation by the same physician; Ea [id number] Minutes Stenting Procedure 1: Cardiovascular Stent Procedures: 93892 Perc transcatheter placement of intracoronary stent(s), with ang PG Care Time/CCT Total # of Minutes Spent Total Time Spent with Patient: Total time spent is greater than 50% in coordination of care (as documented) at patient's floor/unit and/or counseling patient:
--- NOTE | 2021-02-09 16:08 | Hospitalist Progress Note ---
Date of Service February 09, 2021 Assessment & Plan (1) NSTEMI (non-ST elevated myocardial infarction): (2) Ventricular ectopic complex: Plan: 75 y/o female with a PMH of complex ventricular ectopy status post ablation x2, heart cath x2, no stents or CABG, migraine, dyslipidemia, GERD, reactive hypoglycemia, panic attacks, and depression who presents to the ED 02/08 via EMS for an episode of crushing substernal chest pain likely resolved in 20 to 30- minute and patient took aspirin 325 mg prior to that. She is being managed for the following: #. Chest pain rule out ACS #. NSTEMI #. Ventricular ectopic complex -history of ablation, on diltiazem and flecainide. #. Mitral valve prolapse: h/o Admitting troponin negative, admitting EKG NSR with nonspecific ST and T wave abnormality in anterolateral leads. Troponin up trended, patient was started on heparin drip 02/08 evening 02/09 echo: Severely reduced ejection fraction [30 to 35%] grade II diastolic dysfunction, mild AR, moderate TR, significant decline in LV systolic function compared to previous study of February 2020. Status post cardiac cath 02/09mid LAD drug-eluting stent placed. Cardiology on board: Hold diltiazem and flecainide due to QT prolongation. Continue with home aspirin, patient started on Plavix 02/09 Await further recommendation from cardiology. #. Depression: #. GERD (gastroesophageal reflux disease): #. Dyslipidemia: - Continue home medications as appropriate Code Status: Full Code DVT Prophylaxis: SCDs, Hep Drip. Admission and Anticipated Discharge Date Admission Date: February 08, 2021 Physical Exam Physical Exam: GENERAL: Alert and oriented x3. NAD, on RA. HEENT: No pallor, no icterus. Pupils equal, round and reactive to light. Oral mucosa moist. NECK: No JVD, no neck masses. HEART: S1 and S2 heard. Regular rate and rhythm. No murmur, no gallop. RESPIRATORY SYSTEM: Normal AP diameter. No accessory muscle use. No wheezing, no crackles. ABDOMEN: Soft, bowel sounds present, nontender, no distention. CENTRAL NERVOUS SYSTEM: Alert and oriented x3. No facial droop. Speech is clear. Obeys simple commands. Moves extremities. EXTREMITIES: No edema, no erythema seen. Results & Data Results & Data ([facility]) Vital Signs (Past 12 Hours) Vital Signs Temp Pulse Resp BP Pulse Ox 02/09/21 15:41 36.7 C 81 18 102/60 97 02/09/21 15:05 81 16 124/67 97 02/09/21 14:50 78 16 110/60 97 02/09/21 14:38 80 16 117/64 97 02/09/21 12:21 86 17 110/70 100 02/09/21 08:35 36.7 C 83 15 109/66 98
[2021-02-09] MEDS: oxyCODONE HCL IR 5 MG TAB (IMMEDIATE RELEASE) PO PRN ×2 (18:00→23:23)
[2021-02-09] MEDS: SERTRALINE HCL 50 MG TABLET PO SCH (19:39)
[2021-02-10 06:43] LABS: Basophils # (auto) 0.01 K/uL (0-0.2); Basophils % (auto) 0.1 %; Eosinophils # (auto) 0.14 K/uL (0-0.5); Eosinophils % (auto) 1.2 %; Hematocrit (blood only) 39.7 % (37-47); Hemoglobin 13.3 g/dL (12.0-16.0); Immature Granulocytes # (auto) 0.02 K/uL (0.00-0.02); Immature Granulocytes % (auto) 0.2 %; Lymphocytes # (auto) 2.22 K/uL (1.2-3.4); Lymphocytes % (auto) 19.6 %; Mean Corpuscular Hemoglobin 32.7 pg (25-34); Mean Corpuscular Hgb Conc 33.5 g/dL (32-36); Mean Corpuscular Volume 97.5 fL (80-100); Mean Platelet Volume 9.7 fL (7.4-10.4); Monocytes # (auto) 1.05 K/uL (0.11-0.59); Monocytes % (auto) 9.3 %; Neutrophils # (auto) 7.91 K/uL (1.4-6.5); Neutrophils % (auto) 69.6 %; Platelet Count 303 K/uL (130-400); RDW Coefficient of Variation 13.1 % (11.5-14.5); RDW Standard Deviation 46.7 fL (36.4-46.3); Red Blood Count 4.07 M/uL (4.2-5.4); White Blood Count 11.35 K/uL (4.8-10.8)
[2021-02-10 06:52] LABS: Partial Thromboplastin Ratio 0.9; Partial Thromboplastin Time 24.7 Seconds (21.0-31.0)
[2021-02-10 07:19] LABS: BUN Creatinine Ratio 26.5 (10-20); Calcium 8.8 mg/dl (8.5-10.1); Creatinine Clr Calc Pharmacy 55.7 ml/min; Est GFR (African American) 84.9 ml/min; Est GFR (Non-African American) 73.2 ml/min; Potassium 3.8 mmol/L (3.5-5.1)
--- NOTE | 2021-02-10 08:01 | Electrocardiogram Report ---
Test Reason : Blood Pressure : / mmHG Vent. Rate : 074 BPM Atrial Rate : 074 BPM P-R Int : 176 ms QRS Dur : 118 ms QT Int : 510 ms P-R-T Axes : 000 -27 -36 degrees QTc Int : 566 ms Normal sinus rhythm Incomplete right bundle branch block Prolonged QT Abnormal ECG When compared with ECG of 09-FEB-2021 19:21, No significant change Confirmed by Adrian Chand ([id number]) on 02/10/2021 8:00:43 AM Referred By: REFERRED SELF Confirmed By:Adrian Chand
--- NOTE | 2021-02-10 08:27 | Electrocardiogram Report ---
Test Reason : Blood Pressure : / mmHG Vent. Rate : 072 BPM Atrial Rate : 072 BPM P-R Int : 190 ms QRS Dur : 116 ms QT Int : 518 ms P-R-T Axes : 042 -41 247 degrees QTc Int : 567 ms Normal sinus rhythm Left axis deviation Low voltage QRS Prolonged QT Abnormal ECG When compared with ECG of 09-FEB-2021 05:41, No significant change was found Confirmed by Adrian Chand ([id number]) on 02/10/2021 8:27:11 AM Referred By: REFERRED SELF Confirmed By:Adrian Chand
[2021-02-10] MEDS: oxyCODONE HCL IR 5 MG TAB (IMMEDIATE RELEASE) PO PRN ×3 (08:33→20:10)
[2021-02-10] MEDS: CLOPIDOGREL BISULFATE 75 MG TAB PO SCH (08:34)
[2021-02-10] MEDS: ASPIRIN 81 MG ECTAB PO SCH (08:34)
[2021-02-10] MEDS: CHOLECALCIFEROL 1,000 UNITS 25 MCG TAB PO SCH (08:34)
[2021-02-10] MEDS: LOSARTAN POTASSIUM 25 MG TAB PO SCH (08:35)
[2021-02-10] MEDS: MAGNESIUM OXIDE 400 MG TAB PO SCH (08:35)
[2021-02-10] MEDS: ROSUVASTATIN CALCIUM 10 MG TAB PO SCH (08:36)
--- NOTE | 2021-02-10 08:43 | Electrocardiogram Report ---
Test Reason : Blood Pressure : / mmHG Vent. Rate : 080 BPM Atrial Rate : 080 BPM P-R Int : 178 ms QRS Dur : 118 ms QT Int : 472 ms P-R-T Axes : 064 -38 256 degrees QTc Int : 544 ms Normal sinus rhythm Left axis deviation Non-specific intra-ventricular conduction delay Prolonged QT Abnormal ECG When compared with ECG of 09-FEB-2021 21:09, T wave inversion more evident in Inferior leads Confirmed by Adrian Chand ([id number]) on 02/10/2021 8:43:28 AM Referred By: REFERRED SELF Confirmed By:Adrian Chand
--- NOTE | 2021-02-10 08:52 | Electrocardiogram Report ---
Test Reason : Blood Pressure : / mmHG Vent. Rate : 077 BPM Atrial Rate : 077 BPM P-R Int : 192 ms QRS Dur : 120 ms QT Int : 498 ms P-R-T Axes : 048 -40 248 degrees QTc Int : 563 ms Normal sinus rhythm Left axis deviation Non-specific intra-ventricular conduction delay Abnormal ECG When compared with ECG of 09-FEB-2021 05:41, No significant change Confirmed by Adrian Chand ([id number]) on 02/10/2021 8:52:04 AM Referred By: REFERRED SELF Confirmed By:Adrian Chand
[2021-02-10] MEDS ORDERED: METOPROLOL SUCC 25MG EXT REL TAB PO SCH (09:00)
--- NOTE | 2021-02-10 10:33 | Cardiology Progress Note ---
Date of Service February 10, 2021 Assessment & Plan (1) Substernal chest pain: (2) Cardiomyopathy: (3) Elevated troponin: (4) Ventricular ectopic complex: (5) Status post insertion of drug-eluting stent into left anterior descending (LAD) artery: (6) NSTEMI (non-ST elevated myocardial infarction): Plan: Patient is a 75-year-old female with complex history which includes longstanding history of complex ventricular ectopy status post catheter ablation, prior n onischemic cardiomyopathy with return to normal LV function and prior mild nonobstructive coronary disease by past cardiac catheterization. Patient presents this admission having developed sudden onset severe substernal chest pain relieved by sublingual nitroglycerin. EKG demonstrates nonspecific interventricular conduction delay with superimposed new T wave inversions anterolaterally. Troponin moderately elevated and echocardiogram demonstrates new LV dysfunction and apical ballooning pattern. Cardiac catheterization demonstrated mid left anterior sending high-grade stenosis with successful drug-eluting stent implantation across branch LAD diagonal. Plan: Blood pressure has been low we will reduce losartan to 25 mg/day, continue metoprolol succinate 12.5 mg/day, dual antiplatelet therapy and clopidogrel and intensification of lipid-lowering therapy with rosuvastatin Cardiac rehab referral We will repeat echocardiogram today to reassess overall LV systolic function, if still significantly impaired discharged with LifeVest Patient ambulate and if clinically stable may be discharged end of day Addendum: Echocardiogram demonstrates slight improvement over LV function however ejection fraction still less than 35%. Given history of past ventricular arrhythmias ischemic cardiomyopathy patient at elevated risk for post hospital arrhythmia. Patient will be discharged on LifeVest Will need cardiology follow-up 1 to 2 weeks time Admission and Anticipated Discharge Date Admission Date: February 08, 2021 Subjective Patient was seen and examined, chart, medications, telemetry reviewed. Blood pressures trended towards low overnight but no further chest pains dizziness or lightheadedness. No arrhythmias on telemetry. Rare ventricular ectopy only. No bleeding difficulties, right radial access site healed. Review of Systems Review of Systems: All systems reviewed & are unremarkable except as noted in Subjective Physical Exam Constitutional: + thin; no acute distress Eyes: PERRL, conjunctivae normal, anicteric sclerae ENMT: Mallampati Class: III Neck: trachea midline, no thyromegaly Respiratory: normal respiratory effort, lungs clear to auscultation Cardiovascular: RRR, no murmur, no edema Rate/Rhythm: regular rate and regular rhythm Heart Sounds: normal S1 and normal S2; no gallop and no murmur Palpation: normal PMI Vessels: normal carotid upstroke and radial pulses present; no JVD and no carotid bruit Extremities: no edema Gastrointestinal (Abdomen): normal bowel sounds, soft, nontender, no hepatosplenomegaly Musculoskeletal: no cyanosis or clubbing, extremities motor strength 5/5 Skin: no rashes, warm and dry Neurologic: PERRL, EOMI, accommodation nl, no face palsy, no dysarthria Psychiatric: A+Ox3, euthymic affect Results & Data ([facility]) Vital Signs (Past 12 Hours) Vital Signs Temp Pulse Resp BP Pulse Ox 02/10/21 08:02 36.6 C 82 18 92/57 L 99 02/10/21 03:45 36.6 C 80 19 95/59 L 94 02/10/21 00:24 36.6 C 76 19 94/50 L 96 Laboratory Results Laboratory Results - last 24 hr 02/09/21 02/09/21 02/10/21 13:26 14:10 06:16 WBC 11.35 H RBC 4.07 L Hgb 13.3 Hct 39.7 MCV 97.5 MCH 32.7 MCHC 33.5 RDW Std Deviation 46.7 H RDW Coeff of Pamela 13.1 Plt Count 303 MPV 9.7 Immature Gran % (Auto) 0.2 Neut % (Auto) 69.6 Lymph % (Auto) 19.6 Grand % (Auto) 9.3 Eos % (Auto) 1.2 Baso % (Auto) 0.1 Neut # (Auto) 7.91 H Lymph # (Auto) 2.22 Grand # (Auto) 1.05 H Eos # (Auto) 0.14 Baso # (Auto) 0.01 Immature Gran # (Auto) 0.02 APTT PTT Ratio Activ Coag Time Kaolin 158 H 301 H Sodium Potassium Chloride Carbon Dioxide Anion Gap BUN Creatinine Est Cr Clr Drug Dosing Est GFR ( Amer) Est GFR (Non-Af Amer) BUN/Creatinine Ratio Glucose Calcium 02/10/21 02/10/21 06:16 06:16 WBC RBC Hgb Hct MCV MCH MCHC RDW Std Deviation RDW Coeff of Pamela Plt Count MPV Immature Gran % (Auto) Neut % (Auto) Lymph % (Auto) Grand % (Auto) Eos % (Auto) Baso % (Auto) Neut # (Auto) Lymph # (Auto) Grand # (Auto) Eos # (Auto) Baso # (Auto) Immature Gran # (Auto) APTT 24.7 PTT Ratio 0.9 Activ Coag Time Kaolin Sodium 138 Potassium 3.8 D Chloride 111 H Carbon Dioxide 21 Anion Gap 6.0 BUN 21 H Creatinine 0.79 Est Cr Clr Drug Dosing 55.7 Est GFR ( Amer) 84.9 Est GFR (Non-Af Amer) 73.2 BUN/Creatinine Ratio 26.5 H Glucose 104 H Calcium 8.8
[2021-02-10] MEDS: METOPROLOL SUCC 25MG EXT REL TAB PO SCH (11:03)
--- NOTE | 2021-02-10 16:43 | Hospitalist Progress Note ---
Date of Service February 10, 2021 Assessment & Plan (1) NSTEMI (non-ST elevated myocardial infarction): (2) Ventricular ectopic complex: Plan: 75 y/o female with a PMH of complex ventricular ectopy status post ablation x2, heart cath x2, no stents or CABG, migraine, dyslipidemia, GERD, reactive hypoglycemia, panic attacks, and depression who presents to the ED 02/08 via EMS for an episode of crushing substernal chest pain likely resolved in 20 to 30- minute and patient took aspirin 325 mg prior to that. She is being managed for the following: #. Chest pain rule out ACS #. NSTEMI #. Ventricular ectopic complex -history of ablation, on diltiazem and flecainide. #. Mitral valve prolapse: h/o Admitting troponin negative, admitting EKG NSR with nonspecific ST and T wave abnormality in anterolateral leads. Troponin up trended, patient was started on heparin drip 02/08 evening 02/09 echo: Severely reduced ejection fraction [30 to 35%] grade II diastolic dysfunction, mild AR, moderate TR, significant decline in LV systolic function compared to previous study of February 2020. Status post cardiac cath 02/09mid LAD drug-eluting stent placed. Cardiology on board: Hold diltiazem and flecainide due to QT prolongation. Cardiac rehab referral. Discharge with [facility]. Follow-up with cardiology in 1 to 2 weeks. Continue with home aspirin, patient started on Plavix 02/09 #. Hypertension Blood pressure running low while in hospital, losartan dose decreased from 50 daily to 25 daily. #. Depression: #. GERD (gastroesophageal reflux disease): #. Dyslipidemia: - Continue home medications as appropriate Code Status: Full Code DVT Prophylaxis: SCDs, Hep Drip. Disposition: Patient can be discharged as soon as [facility] arranged, medically stable, cardiology okay with discharge, will need to follow-up with cardiology in 1 to 2 weeks of discharge. Admission and Anticipated Discharge Date Admission Date: February 08, 2021 Subjective Patient was lying in bed, NAD, on room air, no acute events overnight. Patient is eating okay. Patient denies any fever/headache/chills/chest pain/shortness of breath/other review of symptoms. Physical Exam Physical Exam: GENERAL: Alert and oriented x3. NAD, on RA. HEENT: No pallor, no icterus. Pupils equal, round and reactive to light. Oral mucosa moist. NECK: No JVD, no neck masses. HEART: S1 and S2 heard. Regular rate and rhythm. No murmur, no gallop. RESPIRATORY SYSTEM: Normal AP diameter. No accessory muscle use. No wheezing, no crackles. ABDOMEN: Soft, bowel sounds present, nontender, no distention. CENTRAL NERVOUS SYSTEM: Alert and oriented x3. No facial droop. Speech is clear. Obeys simple commands. Moves extremities. EXTREMITIES: No edema, no erythema seen. Results & Data Results & Data ([facility]) Vital Signs (Past 12 Hours) Vital Signs Temp Pulse Resp BP Pulse Ox 02/10/21 15:57 36.9 C 81 18 110/68 99 02/10/21 11:36 36.9 C 80 18 98/64 L 97 02/10/21 08:02 36.6 C 82 18 92/57 L 99
[2021-02-10] MEDS: SERTRALINE HCL 50 MG TABLET PO SCH (20:12)
[2021-02-11] MEDS: oxyCODONE HCL IR 5 MG TAB (IMMEDIATE RELEASE) PO PRN ×4 (01:34→15:44)
[2021-02-11 07:00] LABS: Partial Thromboplastin Time 25.9 Seconds (21.0-31.0)
[2021-02-11 07:24] LABS: BUN Creatinine Ratio 27.3 (10-20); Creatinine Clr Calc Pharmacy 57.6 ml/min; Est GFR (African American) 88.9 ml/min; Est GFR (Non-African American) 76.7 ml/min; Magnesium 2.5 mg/dl (1.8-2.4); Phosphorus 3.1 mg/dl (2.5-4.9); Potassium 4.1 mmol/L (3.5-5.1)
[2021-02-11] MEDS: METOPROLOL SUCC 25MG EXT REL TAB PO SCH (09:07)
[2021-02-11] MEDS: LOSARTAN POTASSIUM 25 MG TAB PO SCH (09:07)
[2021-02-11] MEDS: CLOPIDOGREL BISULFATE 75 MG TAB PO SCH (09:08)
[2021-02-11] MEDS: CHOLECALCIFEROL 1,000 UNITS 25 MCG TAB PO SCH (09:08)
[2021-02-11] MEDS: ASPIRIN 81 MG ECTAB PO SCH (09:08)
[2021-02-11] MEDS: ROSUVASTATIN CALCIUM 10 MG TAB PO SCH (09:09)
[2021-02-11] MEDS: MAGNESIUM OXIDE 400 MG TAB PO SCH (09:49)
[2021-02-11] MEDS ORDERED: MAGNESIUM HYDROXIDE SUSP 30 ML UDC PO ONE (10:22)
[2021-02-11 12:00] VITALS: TEMP 98.8; O2SAT 97
--- NOTE | 2021-02-11 13:59 | Cardiology Progress Note ---
Date of Service February 11, 2021 Assessment & Plan (1) Substernal chest pain: (2) Cardiomyopathy: (3) Elevated troponin: (4) Ventricular ectopic complex: (5) Status post insertion of drug-eluting stent into left anterior descending (LAD) artery: (6) NSTEMI (non-ST elevated myocardial infarction): Plan: Patient is a 75-year-old female with complex history which includes longstanding history of complex ventricular ectopy status post catheter ablation, prior n onischemic cardiomyopathy with return to normal LV function and prior mild nonobstructive coronary disease by past cardiac catheterization. Patient presents this admission having developed sudden onset severe substernal chest pain relieved by sublingual nitroglycerin. EKG demonstrates nonspecific interventricular conduction delay with superimposed new T wave inversions anterolaterally. Troponin moderately elevated and echocardiogram demonstrates new LV dysfunction and apical ballooning pattern. Cardiac catheterization demonstrated mid left anterior sending high-grade stenosis with successful drug-eluting stent implantation across branch LAD diagonal. Plan: Blood pressure has been low we will reduce losartan to 25 mg/day, continue metoprolol succinate 12.5 mg/day, dual antiplatelet therapy and clopidogrel and intensification of lipid-lowering therapy with rosuvastatin Cardiac rehab referral We will repeat echocardiogram today to reassess overall LV systolic function, if still significantly impaired discharged with [facility] Patient ambulate and if clinically stable may be discharged end of day Echocardiogram demonstrates slight improvement over LV function however ejection fraction still less than 35%. Given history of past ventricular arrhythmias ischemic cardiomyopathy patient at elevated risk for post hospital arrhythmia. Patient will be discharged on [facility] Will need cardiology follow-up 1 to 2 weeks time Admission and Anticipated Discharge Date Admission Date: February 08, 2021 Subjective Patient seen and examined, chart reviewed. No complaints overnight. Awaiting [facility] placement for discharge. Telemetry reviewed: Normal sinus rhythm without arrhythmia or significant ectopy. Review of Systems Review of Systems: All systems reviewed & are unremarkable except as noted in HPI & below Physical Exam Physical Exam: General: Awake, alert and oriented x 3. No acute distress. HEENT: Normocephalic, atraumatic. Pupils equal, round and reactive to light and accommodation. Extraocular muscles are intact. Anicteric sclera. Moist mucous membranes. Neck: No JVD. No bruit. Cardiovascular: Regular. Positive S-4. Normal S-1 and S-2. No S-3. No murmurs or rubs. Pulmonary: Clear to auscultation B/L. No rales, rhonchi or wheezing Abdomen: Bowel sounds x 4, soft. No rebound, guarding or tenderness. No organomegaly. Extremities: No clubbing, cyanosis or edema. +2 pedal pulses bilaterally. Skin: Warm and dry. Results & Data ([facility]) Vital Signs (Past 12 Hours) Vital Signs Temp Pulse Pulse Resp BP Pulse Ox 02/11/21 11:59 37.1 C 77 18 110/61 97 02/11/21 10:28 71 02/11/21 07:19 37.0 C 83 20 103/60 95 02/11/21 04:25 36.8 C 81 18 94/57 L 95
--- NOTE | 2021-02-11 15:52 | Discharge Summary ---
Date of Service February 11, 2021 Admission HPI Per Admitting Provider This is a 75 y/o female with a PMH of complex ventricular ectopy, migraine, dyslipidemia, GERD, reactive hypoglycemia, panic attacks, and depression who presents to the ED today via EMS for an episode of crushing substernal chest pain. Pt has a history of ventricular ectopy, which she has followed with cardiology for many years and reports at least two prior ablations - follows with Dr. Villareal with last visit in Nov and was doing well. This morning, she woke up feeling well. She was sitting at home, working online and listening to her talk when she developed crushing chest pain/pressure that she tommy cribes as severe. She does note that she was aggravated with her at the time that this started and she is unsure if she is related. Pain radiated to her bilateral neck/jaw and to her upper abdomen. She describes it as "an elephant sitting on my chest." She does have a history of panic attacks in the but has been doing well for the past twenty years. Today's chest pain does not feel similar to prior panic attacks, at least that she can recall. She took aspirin 325 mg x 1 and called EMS. The pain lasted about 20-30 minutes total - she does not recall anything specific that caused it to go away. She denies associated shortness of breath, dizziness, diaphoresis, palpitations. Cardiac cath in 2015 showed "the coronary arteries have diffuse minor irregularities. Mid LAD with non-obstructive 30% lesion followed by a 50% lesion past the diagonal branch." ECHO in Feb 2020 showed LV EF 55-59%, mildly abnormal LV diastolic dysfunction, mild aortic regurgitation, anterior MV leaflet is mildly thickened, mild posterior mitral leaflet prolapse, mild MR, mild TR, no pulm HTN. Currently chest pain has resolved but she feels a "residual presence" in the upper abdomen. No N/V/D. Admission Exam Per Admitting Provider Constitutional: well developed and well nourished; no acute distress Eyes: + anicteric sclerae Neck: trachea midline Respiratory: no respiratory distress and no labored breathing Auscultation: lungs clear to auscultation bilaterally; no rales, no rhonchi and no wheezes Cardiovascular: Rate/Rhythm: regular rate and regular rhythm Heart Sounds: no gallop, no murmur and no cardiac rub Vessels: dorsalis pedis pulses present and radial pulses present Extremities: no calf tenderness and no pedal edema No tenderness on palpation of the chest wall Gastrointestinal (Abdomen): Inspection/Auscultation: normal bowel sounds; abdomen not distended Percussion/Palpation: + abdomen tender (mild epigastric) and abdomen soft Musculoskeletal: Head/Neck/Chest: normocephalic, head atraumatic and neck supple Skin: no rashes, warm and dry Neurologic: moves all extremities; no focal motor deficits Psychiatric: A+Ox3, euthymic affect Principal Diagnosis NSTEMI Hypertension Discharge Exam GENERAL: Alert and oriented x3. NAD, on RA. HEENT: No pallor, no icterus. Pupils equal, round and reactive to light. Oral mucosa moist. NECK: No JVD, no neck masses. HEART: S1 and S2 heard. Regular rate and rhythm. No murmur, no gallop. RESPIRATORY SYSTEM: Normal AP diameter. No accessory muscle use. No wheezing, no crackles. ABDOMEN: Soft, bowel sounds present, nontender, no distention. CENTRAL NERVOUS SYSTEM: Alert and oriented x3. No facial droop. Speech is clear. Obeys simple commands. Moves extremities. EXTREMITIES: No edema, no erythema seen. Discharge Data Allergies Allergy/AdvReac Type Severity Reaction Status Date / Time erythromycin base Allergy Mild Verified 02/08/21 16:02 Consultations 02/08/21 15:01 ED Decision to Admit Stat 02/08/21 20:31 Consult Cardiology Routine 02/09/21 14:35 Consult Cardiac Rehabilitation Routine Procedures Performed Operation Date: 02/09/21 13:30 Actual Procedures p Drug Eluting Stent SGl Vessel - Harvey Farah MD s Cineradiography w/Routine Exam - Harvey Farah MD s Cath, Left with Cors and Vent - Wilmar Santos MD Ordered Studies 02/09/21 09:51 CL Cath Imgs for PACS use only Routine Hospital Course (1) NSTEMI (non-ST elevated myocardial infarction): (2) Ventricular ectopic complex: 75 y/o female with a PMH of complex ventricular ectopy status post ablation x2, heart cath x2, no stents or CABG, migraine, dyslipidemia, GERD, reactive hypoglycemia, panic attacks, and depression who presents to the ED 02/08 via EMS for an episode of crushing substernal chest pain likely resolved in 20 to 30-minute and patient took aspirin 325 mg prior to that. She was managed for the following: #. Chest pain rule out ACS #. NSTEMI #. Ventricular ectopic complex -history of ablation, on diltiazem and flecainide. #. Mitral valve prolapse: h/o Admitting troponin negative, admitting EKG NSR with nonspecific ST and T wave abnormality in anterolateral leads. Troponin up trended, patient was started on heparin drip 02/08 evening 02/09 echo: Severely reduced ejection fraction [30 to 35%] grade II diastolic dysfunction, mild AR, moderate TR, significant decline in LV systolic function compared to previous study of February 2020. Status post cardiac cath 02/09mid LAD drug-eluting stent placed. Cardiology on board: Held diltiazem and flecainide due to QT prolongation. Cardiac rehab referral. Discharge with [facility]. Follow-up with cardiology in 1 to 2 weeks. Rosuvastatin, DAPT, losartan dose decreased. Continue with home aspirin, patient started on Plavix 02/09 Patient to follow-up with primary care physician and social security assessor as discussed at the bedside. #. Hypertension Blood pressure running low while in hospital, losartan dose decreased from 50 daily to 25 daily. #. Depression: #. GERD (gastroesophageal reflux disease): #. Dyslipidemia: - Continue home medications as appropriate Patient is being discharged home with the following study at time discharge: Follow-up with your primary care physician within a week time. Your cardiac medications has been changed as discussed at the bedside, take medications as prescribed. Follow-up with your social security assessor as an outpatient. Follow-up with cardiology in 1 to 2 weeks time. You will be discharged with [facility]. Follow-up with your cardiac rehab. Total Time Total Time Spent Total Time Spent (In Minutes): 35 Discharge Plan Discharge Items Patient Disposition: Home - Self-Care Reason For Visit: CHEST PAIN Discharge Diagnosis: NSTEMI Hypertension Activity: Resume your previous activity Non-emergency contact: Primary Care Provider Call non-emergency contact if: you have any medication questions and your symptoms worsen Follow-up/Referrals: Lara Chen MD [Primary Care Provider] - (Date & Time 02/14/2021 11:00 AM Provider Soniya Coello MD Department General Internal Medicine [facility] ) Diet: Heart Healthy Addtl Attending Provider Instructions: Follow-up with your primary care physician within a week time. Your cardiac medications has been changed as discussed at the bedside, take medications as prescribed. Follow-up with your social security assessor as an outpatient. Follow-up with cardiology in 1 to 2 weeks time. You will be discharged with [facility]. Follow-up with your cardiac rehab. Pending Studies at Discharge: No Stand-Alone Forms: [facility], Smoking Cessation Medications and DC Order Prescriptions: New clopidogrel 75 mg Tablet 75 mg PO QAM Qty: 30 RF: 0 losartan 25 mg Tablet 25 mg PO DAILY Qty: 30 RF: 0 metoprolol succinate 25 mg Tablet Extended Release 24 Hr 12.5 mg PO QAM Qty: 15 RF: 0 rosuvastatin [Crestor] 10 mg Tablet 10 mg PO QAM Qty: 30 RF: 0 Continued aspirin [Aspir-Low] 81 mg Tablet,Delayed Release (Dr/Ec) 81 mg PO DAILY RF: 0 oxycodone 5 mg tablet 2.5 mg PO Q6H PRN (Reason: Back Pain) RF: 0 sertraline 50 mg tablet 50 mg PO QPM RF: 0 sertraline 25 mg tablet 25 mg PO QPM RF: 0 cholecalciferol (vitamin D3) 50 mcg (2,000 unit) Tablet 50 mcg PO DAILY RF: 0 magnesium oxide 400 mg magnesium Tablet 400 mg PO DAILY RF: 0 melatonin 5 mg Tablet 5 mg PO HS RF: 0 riboflavin (vitamin B2) 400 mg Tablet 400 mg PO DAILY RF: 0 Discontinued diltiazem HCl 120 mg capsule,extended release 24hr 120 mg PO DAILY RF: 0 pravastatin 40 mg tablet 20 mg PO BID RF: 0 losartan 50 mg tablet 50 mg PO DAILY RF: 0 flecainide 100 mg tablet 100 mg PO BID RF: 0 Discharge Orders: Discharge Order (Routine); Ordered 02/11/21 Ordered By: Christianne Silvestre Admission Data Admit Date/Time: 02/08/21 21:55 Attending Provider: Christianne Silvestre Admit Provider: Christianne Silvestre Primary Care Provider: Lara Chen Other Providers: Christianne Silvestre ; Wilmar Santos
[2021-02-11 15:54] VITALS: BP 102/60; PULSE 77
== END 2021-02-11 17:08 | disposition home or self-care (01) | DRG 247 ==
LOC: ED 13:25 → EDINP 13:25 → 2S 02-09 14:57

== ENCOUNTER 2021-12-15 14:57 | Observation (INO) ==
--- NOTE | 2021-12-15 15:27 | Emergency Department Note ---
Impression & Plan Weakness, SOB (shortness of breath), Frequent PVCs, Bigeminal rhythm ED Provider Note NAME: PARRIS BRISENO AGE: 76 SEX: F : 1945 ARRIVES VIA: Walk-In INFORMANT: [Patient] ED PROVIDER(S): [Eyad Venegas MD] CHIEF COMPLAINT: Shortness of breath, weakness HISTORY OF PRESENT ILLNESS: The patient is a 76-year-old female with a history of V. tach with ablation. S he also had a coronary stent placed a few months ago. The patient states that the only change in her medications is the addition of oxybutynin. She restarted this medication 2 weeks ago and then 3 days ago, increased the dose from once a day to twice a day. She is now on oxybutynin 2.5 mg 2 times a day. The patient felt washed out and weak and short of breath last night, especially with exertion. Today, the symptoms continued. The patient also used her pulse ox monitor at home and her pulse was in the 40s and her O2 saturation was low, her blood pressure was low. She presents for evaluation. There is no chest pain. There has been no cough or congestion or sore throat. No diarrhea. No fever. REVIEW OF SYSTEMS: See HPI for pertinent positives and negatives. A total of ten systems were reviewed and were otherwise negative. PMHx/PSHx: See Below SOCIAL HISTORY: See Below. PHYSICAL EXAM: GENERAL: Patient is in no acute distress. HEENT: No acute trauma, normocephalic atraumatic, mucous membranes moist, no nasal congestion, no scleral icterus. NECK: No stridor, no adenopathy, no meningismus, trachea is midline. LUNGS: Clear to auscultation bilaterally, no wheeze, no rhonchi, breath sounds equal. HEART: Bradycardic, irregular rhythm, no obvious murmur. ABDOMEN: Soft, nontender, bowel sounds positive, no peritonitis. EXTREMITIES: No cyanosis or edema, full range of motion of all the joints without pain or difficulty, no signs for acute trauma. NEUROLOGIC: Oriented x 3, no acute motor or sensory deficits, no focal weakness. SKIN: No rash, no jaundice, no diaphoresis. DIFFERENTIAL DIAGNOSIS: Infection, dehydration, medication reaction, dysrhythmia, A. fib, a flutter, PVCs, PACs, metabolic abnormality, hypo/hyperglycemia, electrolyte disturbance, anemia, hypoxia, cardiac sources, intracerebral event, toxicologic issues, stroke, TIA, as well as other pathologies. EMERGENCY DEPARTMENT COURSE/PROCEDURES: ECG: Indication was shortness of breath. The ECG shows a sinus rhythm with frequent PVCs in the pattern of bigeminy. The rate is 67. There is no ST elevation. The QTc is 439. Compared to an ECG from 10 February 2021, the T wave inversions appear to have resolved. PVCs are now present. The rate has decreased. Continuous Cardiac Monitoring: An order was placed for continuous cardiac monitoring. The monitor shows a rate of 61 with sinus rhythm with PVCs. Critical Care Note: I have personally spent 49 minutes of critical care time in the direct management of this patient. This includes bedside care, interpretation of diagnostic studies, and testing, discussion with consultants, patient, and family members, and other required patient management activities. This 49 minutes is in excess of all separately billable procedures. MEDICAL DECISION MAKING: There is no leukocytosis or concerning anemia. There is a normal platelet count. Sodium slightly low but not in need of emergent correction. No renal failure. No concerning liver enzyme elevation. The patient appeared to be in a euthyroid state. ECG showed a sinus rhythm with frequent PVCs in a bigeminal pattern. No ST elevation to suggest acute cardiac injury. Cardiac enzyme testing x1 was not consistent with acute cardiac injury. Urinalysis did not show signs of infection. COVID test returned negative. Chest x-ray did not show pneumonia or CHF. On exam, the patient was not in distress, she seemed to be resting comfortably. The patient was given IV saline, 500 cc. I spoke with Dr. Santos of cardiology. He suggested observation and a hospital stay. At this point, the cause for her complaints is unclear but certainly, she may be reacting to the oxybutynin which was recently increased. The bigeminal pattern on her ECG is apparently relatively baseline as per Dr. Santos. I spoke with the patient and case management, the on-call hospitalist was consulted. Past Med/Surg History Medical History Depression Dyslipidemia GERD (gastroesophageal reflux disease) Mitral valve prolapse Reactive hypoglycemia Ventricular ectopic complex Surgical History History of cardiac catheterization History of cardiac radiofrequency ablation History of D&C History of lumbar spinal fusion Social History Smoking Status: Never smoker Tobacco Type: Cigarettes Second Hand Exposure: No; Do You Dip or Chew Tobacco: No; Tobacco Cessation Education Requested by Patient: No Hx Alcohol Use: No Hx Substance Use: No Preferred Language: Persian Communication Ability: Effective Cat Swamper Required: No Beliefs That Will Affect Care: None marital status: Current Living Situation: Spouse Other Information That Helps Us Care for You: No Feels Safe at Home: Yes Safety Concerns: Feels Safe At This Time Assistive Devices: None Allergies Allergies Allergy/AdvReac Type Severity Reaction Status Date / Time erythromycin base Allergy Mild Unknown Verified 12/15/21 17:20 Home Meds Home Medications Medication Instructions Recorded Confirmed aspirin 81 mg tablet,delayed 81 mg PO DAILY 02/08/21 12/15/21 release cholecalciferol (vitamin D3) 50 50 mcg PO QPM 02/08/21 12/15/21 mcg (2,000 unit) tablet magnesium oxide 400 mg PO QPM 02/08/21 12/15/21 melatonin 5 mg tablet 5 mg PO HS 02/08/21 12/15/21 riboflavin (vitamin B2) 400 mg 400 mg PO QPM 02/08/21 12/15/21 tablet sertraline 25 mg tablet 25 mg PO QPM 02/08/21 12/15/21 sertraline 50 mg tablet 50 mg PO QPM 02/08/21 12/15/21 calcium carbonate 500 mg calcium 500 mg PO QPM 12/15/21 12/15/21 (1,250 mg) tablet estradiol 0.01% (0.1 mg/gram) 1 applic vaginal 3XWK 12/15/21 12/15/21 vaginal cream metoprolol succinate 25 mg 12.5 mg PO QPM 12/15/21 12/15/21 tablet,extended release 24 hr metoprolol succinate 25 mg 25 mg PO QAM 12/15/21 12/15/21 tablet,extended release 24 hr oxybutynin chloride 5 mg 2.5 mg PO AMPM 12/15/21 12/15/21 tablet,extended release 24 hr pantoprazole 20 mg tablet,delayed 20 mg PO DAILY 12/15/21 12/15/21 release pregabalin 75 mg capsule 75 mg PO TID 12/15/21 12/15/21 Previous Rx's Medication Instructions Recorded clopidogrel 75 mg tablet 75 mg PO QAM #30 tabs 02/11/21 losartan 25 mg tablet 25 mg PO DAILY #30 tabs 02/11/21 rosuvastatin 10 mg tablet (Crestor) 10 mg PO QAM #30 tabs 02/11/21 Results & Data (ED) Vital Signs Vital Signs - 24 hr 12/15/21 14:58 12/15/21 14:58 12/15/21 14:58 Temperature 36.9 C Temperature Source Oral Pulse Rate 35 L Pulse Rate from SpO2 Sensor Pulse Rhythm Respiratory Rate 16 Respiratory Effort / Characteristics Non-Labored Respiratory Depth Respiratory Pattern Regular Blood Pressure 107/47 L Blood Pressure Mean 67 Pulse Oximetry 94 Oxygen Delivery Method Room Air Room Air Sepsis Recent Fever Within 48 Hours No Sepsis New/Unexplained Change in Mental Status No Sepsis Action Taken by Nursing No Action Required 12/15/21 15:29 12/15/21 15:16 12/15/21 15:24 Temperature Temperature Source Pulse Rate 70 77 Pulse Rate from SpO2 Sensor 34 L Pulse Rhythm Regular Respiratory Rate 18 20 Respiratory Effort / Characteristics Respiratory Depth Respiratory Pattern Blood Pressure 139/51 L Blood Pressure Mean 80 Pulse Oximetry 99 98 Oxygen Delivery Method Room Air Sepsis Recent Fever Within 48 Hours Sepsis New/Unexplained Change in Mental Status Sepsis Action Taken by Nursing 12/15/21 15:24 12/15/21 14:58 12/15/21 15:40 Temperature Temperature Source Pulse Rate 68 65 Pulse Rate from SpO2 Sensor 34 L 33 L Pulse Rhythm Respiratory Rate 22 21 Respiratory Effort / Characteristics Non-Labored Respiratory Depth Normal Respiratory Pattern Regular Blood Pressure Blood Pressure Mean Pulse Oximetry 98 99 Oxygen Delivery Method Sepsis Recent Fever Within 48 Hours Sepsis New/Unexplained Change in Mental Status Sepsis Action Taken by Nursing 12/15/21 15:50 12/15/21 16:00 12/15/21 16:00 Temperature Temperature Source Pulse Rate 65 60 Pulse Rate from SpO2 Sensor 32 L 59 L Pulse Rhythm Respiratory Rate 18 14 Respiratory Effort / Characteristics Respiratory Depth Respiratory Pattern Blood Pressure 145/76 H Blood Pressure Mean 99 Pulse Oximetry 99 98 Oxygen Delivery Method Sepsis Recent Fever Within 48 Hours Sepsis New/Unexplained Change in Mental Status Sepsis Action Taken by Nursing 12/15/21 16:01 12/15/21 16:01 12/15/21 16:10 Temperature Temperature Source Pulse Rate 59 L 58 L Pulse Rate from SpO2 Sensor 59 L 57 L Pulse Rhythm Respiratory Rate 15 18 Respiratory Effort / Characteristics Respiratory Depth Respiratory Pattern Blood Pressure 148/70 H Blood Pressure Mean 96 Pulse Oximetry 98 98 Oxygen Delivery Method Sepsis Recent Fever Within 48 Hours Sepsis New/Unexplained Change in Mental Status Sepsis Action Taken by Nursing 12/15/21 16:20 12/15/21 16:30 12/15/21 16:40 Temperature Temperature Source Pulse Rate 57 L 67 66 Pulse Rate from SpO2 Sensor 38 L Pulse Rhythm Respiratory Rate 17 20 26 H Respiratory Effort / Characteristics Respiratory Depth Respiratory Pattern Blood Pressure Blood Pressure Mean Pulse Oximetry 99 Oxygen Delivery Method Sepsis Recent Fever Within 48 Hours Sepsis New/Unexplained Change in Mental Status Sepsis Action Taken by Nursing 12/15/21 16:50 Temperature Temperature Source Pulse Rate 64 Pulse Rate from SpO2 Sensor 32 L Pulse Rhythm Respiratory Rate 18 Respiratory Effort / Characteristics Respiratory Depth Respiratory Pattern Blood Pressure Blood Pressure Mean Pulse Oximetry 98 Oxygen Delivery Method Sepsis Recent Fever Within 48 Hours Sepsis New/Unexplained Change in Mental Status Sepsis Action Taken by [facility] Medications Current Medication List: was personally reviewed by me Laboratory Data Attestation: I reviewed the patient's lab results. Result diagrams: 12/15/21 15:14 12/15/21 15:14 Lab Results 12/15/21 12/15/21 12/15/21 Range/Units 15:14 15:14 15:14 WBC 8.01 (4.8-10.8) K/ul RBC 4.27 (3.93-5.22) M/uL Hgb 13.4 (12.0-16.0) g/dl Hct 40.6 (34.1-44.9) % MCV 95.1 (80.0-100.0) fL MCH 31.4 (25.0-34.0) pg MCHC 33.0 (32.0-36.0) g/dL RDW Std Deviation 47.0 H (36.4-46.3) fL RDW Coeff of Pamela 13.6 (11.5-14.5) % Plt Count 191 (130-400) K/uL MPV 10.9 (9.4-12.3) fL Immature Gran % (Auto) 0.2 % Neut % (Auto) 59.7 % Lymph % (Auto) 28.6 % [place] % (Auto) 8.4 % Eos % (Auto) 2.5 % Baso % (Auto) 0.6 % Neut # (Auto) 4.78 (1.4-6.5) K/uL Lymph # (Auto) 2.29 (1.2-3.4) K/uL [place] # (Auto) 0.67 (0.24-0.82) K/uL Eos # (Auto) 0.20 (0-0.50) K/uL Baso # (Auto) 0.05 (0-0.2) K/uL Immature Gran # (Auto) 0.02 (0.00-0.02) K/uL Sodium 135 L (136-145) mmol/L Potassium 4.7 (3.5-5.1) mmol/L Chloride 104 (98-107) mmol/L Carbon Dioxide 25 (21-32) mmol/L Anion Gap 6 (3-11) BUN 36 H (6-23) mg/dl Creatinine 1.11 (0.6-1.2) mg/dl Est Cr Clr Drug Dosing 39.8 ml/min Est GFR ( Amer) 55.9 ml/min Est GFR (Non-Af Amer) 48.2 ml/min BUN/Creatinine Ratio 32.4 H (10-20) Glucose 93 (70-99(Fasting)) mg/dl Calcium 9.2 (8.5-10.1) mg/dl Magnesium 2.4 (1.7-2.4) mg/dl Total Bilirubin 0.5 (0.2-1.0) mg/dl AST 36 (13-39) U/L ALT 37 (7-52) U/L Alkaline Phosphatase 84 (34-104) U/L Troponin I High Sens 5.0 (0-14) pg/ml Total Protein 6.9 (6.0-8.3) gm/dl Albumin 4.4 (3.4-5.0) gm/dl Globulin 2.5 (2.5-4.0) gm/dl Albumin/Globulin Ratio 1.8 (0.9-2) TSH 3.439 (0.300-4.500) uIu/ml Urine Color Urine Appearance (Clear) Urine pH (4.5-7.5) Ur Specific [place] (1.000-1.030) Urine Protein (Negative) Urine Glucose (UA) (Negative) Urine Ketones (Negative) Urine Blood (Negative) Urine Nitrite (Negative) Urine Bilirubin (Negative) Urine Urobilinogen (Negative) Ur Leukocyte Esterase (Negative) SARS-CoV-2, RNA, NAAT (NEGATIVE) 12/15/21 12/15/21 Range/Units 16:10 16:55 WBC (4.8-10.8) K/ul RBC (3.93-5.22) M/uL Hgb (12.0-16.0) g/dl Hct (34.1-44.9) % MCV (80.0-100.0) fL MCH (25.0-34.0) pg MCHC (32.0-36.0) g/dL RDW Std Deviation (36.4-46.3) fL RDW Coeff of Pamela (11.5-14.5) % Plt Count (130-400) K/uL MPV (9.4-12.3) fL Immature Gran % (Auto) % Neut % (Auto) % Lymph % (Auto) % [place] % (Auto) % Eos % (Auto) % Baso % (Auto) % Neut # (Auto) (1.4-6.5) K/uL Lymph # (Auto) (1.2-3.4) K/uL [place] # (Auto) (0.24-0.82) K/uL Eos # (Auto) (0-0.50) K/uL Baso # (Auto) (0-0.2) K/uL Immature Gran # (Auto) (0.00-0.02) K/uL Sodium (136-145) mmol/L Potassium (3.5-5.1) mmol/L Chloride (98-107) mmol/L Carbon Dioxide (21-32) mmol/L Anion Gap (3-11) BUN (6-23) mg/dl Creatinine (0.6-1.2) mg/dl Est Cr Clr Drug Dosing ml/min Est GFR ( Amer) ml/min Est GFR (Non-Af Amer) ml/min BUN/Creatinine Ratio (10-20) Glucose (70-99(Fasting)) mg/dl Calcium (8.5-10.1) mg/dl Magnesium (1.7-2.4) mg/dl Total Bilirubin (0.2-1.0) mg/dl AST (13-39) U/L ALT (7-52) U/L Alkaline Phosphatase (34-104) U/L Troponin I High Sens (0-14) pg/ml Total Protein (6.0-8.3) gm/dl Albumin (3.4-5.0) gm/dl Globulin (2.5-4.0) gm/dl Albumin/Globulin Ratio (0.9-2) TSH (0.300-4.500) uIu/ml Urine Color Yellow Urine Appearance Clear (Clear) Urine pH 7.5 (4.5-7.5) Ur Specific [place] 1.008 (1.000-1.030) Urine Protein Negative (Negative) Urine Glucose (UA) Negative (Negative) Urine Ketones Negative (Negative) Urine Blood Negative (Negative) Urine Nitrite Negative (Negative) Urine Bilirubin Negative (Negative) Urine Urobilinogen Negative (Negative) Ur Leukocyte Esterase Negative (Negative) SARS-CoV-2, RNA, NAAT NEGATIVE (NEGATIVE) Administered Medications Discontinued Medications Sodium Chloride (Nss) 500 mls @ 999 mls/hr IV .Q31M GASTON Stop: 12/15/21 16:00 Last Infusion: 12/15/21 16:38 Dose: 0 mls/hr Documented By: Admin: 12/15/21 15:25 Dose: 999 mls/hr Documented By: SRINIVAS Imaging Data Radiologist's Impression: Chest X-Ray 12/15/21 15:21 XR chest 1V portable HISTORY: weakness COMPARISON: Chest 02/08/2021. FINDINGS: Mild right apical pleural thickening, unchanged. There is mild enlargement of the cardiac silhouette. This is also similar to the prior study. No focal lung consolidations to suggest a pneumonia. No evidence for pulmonary edema. There are low lung volumes. No pleural effusions. No pneumothorax. There is mild elevation of the report right hemidiaphragm. IMPRESSION: 1. Stable mild cardiomegaly. 2. Low lung volumes with mild elevation of the right hemidiaphragm. ACT 112: Negative or not required by law. Electronically signed by: John Schuster M.D. 12/15/2021 3:51 PM Discharge Plan Visit Data Chief Complaint: Shortness of Breath/Dyspnea Stated Complaint: PULSE DROPPED, SOB, DIZZY, FATIGUE ED Provider: Eyad Venegas Discharge Problem: Weakness, SOB (shortness of breath), Frequent PVCs, Bigeminal rhythm Patient Disposition: Admitted As Inpatient Condition: Fair Discharge Instructions Interventions: ED Discharge Assessment Last Done: 12/15/21 18:38
[2021-12-15] MEDS ORDERED: SODIUM CHLORIDE 0.9% 500 ML IV SCH (15:30)
[2021-12-15 15:36] LABS: Basophils # (auto) 0.05 K/uL (0-0.2); Basophils % (auto) 0.6 %; Eosinophils % (auto) 2.5 %; Hematocrit (blood only) 40.6 % (34.1-44.9); Hemoglobin 13.4 g/dl (12.0-16.0); Immature Granulocytes # (auto) 0.02 K/uL (0.00-0.02); Immature Granulocytes % (auto) 0.2 %; Lymphocytes # (auto) 2.29 K/uL (1.2-3.4); Lymphocytes % (auto) 28.6 %; Mean Corpuscular Hemoglobin 31.4 pg (25.0-34.0); Mean Corpuscular Volume 95.1 fL (80.0-100.0); Mean Platelet Volume 10.9 fL (9.4-12.3); Monocytes # (auto) 0.67 K/uL (0.24-0.82); Monocytes % (auto) 8.4 %; Neutrophils # (auto) 4.78 K/uL (1.4-6.5); Neutrophils % (auto) 59.7 %; Platelet Count 191 K/uL (130-400); RDW Coefficient of Variation 13.6 % (11.5-14.5); Red Blood Count 4.27 M/uL (3.93-5.22); White Blood Count 8.01 K/ul (4.8-10.8)
--- NOTE | 2021-12-15 15:52 | XRay Report ---
XR chest 1V portable HISTORY: weakness COMPARISON: Chest 02/08/2021. FINDINGS: Mild right apical pleural thickening, unchanged. There is mild enlargement of the cardiac s ilhouette. This is also similar to the prior study. No focal lung consolidations to suggest a pneumon ia. No evidence for pulmonary edema. There are low lung volumes. No pleural effusions. No pneumothora x. There is mild elevation of the report right hemidiaphragm. IMPRESSION: 1. Stable mild cardiomegaly. 2. Low lung volumes with mild elevation of the right hemidiaphragm. ACT 112: Negative or not required by law. Electronically signed by: John Schuster M.D. 12/15/2021 3:51 PM
[2021-12-15 16:08] LABS: Albumin Globulin Ratio 1.8 (0.9-2); Albumin Level 4.4 gm/dl (3.4-5.0); BUN Creatinine Ratio 32.4 (10-20); Bilirubin,Total 0.5 mg/dl (0.2-1.0); Calcium 9.2 mg/dl (8.5-10.1); Creatinine Clr Calc Pharmacy 39.8 ml/min; Est GFR (African American) 55.9 ml/min; Est GFR (Non-African American) 48.2 ml/min; Globulin 2.5 gm/dl (2.5-4.0); Magnesium 2.4 mg/dl (1.7-2.4); Potassium 4.7 mmol/L (3.5-5.1); Total Protein 6.9 gm/dl (6.0-8.3)
--- NOTE | 2021-12-15 16:35 | Electrocardiogram Report ---
Test Reason : Blood Pressure : / mmHG Vent. Rate : 067 BPM Atrial Rate : 067 BPM P-R Int : 160 ms QRS Dur : 106 ms QT Int : 416 ms P-R-T Axes : 069 -27 059 degrees QTc Int : 439 ms Sinus rhythm with frequent Premature ventricular complexes in a pattern of bigeminy Low voltage QRS Nonspecific ST and T wave abnormality Abnormal ECG When compared with ECG of 10-FEB-2021 05:47, Premature ventricular complexes are now Present T wave inversion no longer evident in Inferior leads T wave inversion no longer evident in Anterolateral leads QT has shortened Confirmed by Godfrey Vogel ([id number]) on 12/15/2021 4:35:27 PM Referred By: REFERRED SELF Confirmed By:Godfrey Vogel
[2021-12-15 17:07] LABS: Appearance Urine Clear (Clear); Bilirubin Urine Negative (Negative); Blood Urine Negative (Negative); Color Urine Yellow; Glucose Urine UA Negative (Negative); Ketones Urine Negative (Negative); Leukocyte Esterase Urine Negative (Negative); Nitrite Urine Negative (Negative); Protein Urine Negative (Negative); Specific Gravity Urine 1.008 (1.000-1.030); Urobilinogen Urine Negative (Negative); pH Urine 7.5 (4.5-7.5)
--- NOTE | 2021-12-15 17:19 | History & Physical Report ---
Date of Service December 15, 2021 Assessment & Plan (1) Weakness: (2) SOB (shortness of breath): Plan: Patient is 76 y/o F with PMH complex ventricular ectopy status post ablation x2, heart cath x2, no stents or CABG, migraine, dyslipidemia, GERD, overactive bladder, panic attacks, and depression presented to ER with complaint of weakness and shortness of breath with exertion x 1 day. Denies palpitations. Restarted oxybutynin couple weeks ago. In ER noted to have PVCs and bigeminy pattern. Initial high-sensitivity troponin negative, no significant electrolyte abnormality DDX: med side effect, PVCs, arrhythmia, symptomatic bradycardia, tachybradycardia syndrome Currently patient reports chest feels tired, denies shortness of breath, chest pain, palpitations Monitor on tele Echo Continue metoprolol Hold oxybutynin ER physician spoke to on-call cardiology, Dr. Santos, recommended admission for further observation CBC, BMP in a.m. (3) Frequent PVCs: (4) Ventricular ectopic complex: Plan: History complex ventricular ectopy s/p ablation x2 Follows with [address] 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 EF 44% in 2020 at time of NSTEMI. Echo 05/2021: EF 57%, grade 1 diastolic dysfunction, mild AR, mild MR Update echo to reassess (7) HTN (hypertension): Plan: Continue metoprolol, losartan (8) Dyslipidemia: Plan: Continue rosuvastatin (9) Depression: Plan: Continue sertraline (10) GERD (gastroesophageal reflux disease): Plan: Continue PPI (11) Urinary incontinence: Plan: We will hold oxybutynin as above DVT Prophylaxis Lovenox SQ DNR/DNI as per discussion with pt Follows with Dr Jean-Baptiste for routine care Pt was seen and care coordinated with Dr Villafana. See addendum History of Present Illness Chief Complaint: weakness Primary Care Provider: Suraj Jean-Baptiste, Patient is 76 y/o F with PMH complex ventricular ectopy status post ablation x2, heart cath x2, no stents or CABG, migraine, dyslipidemia, GERD, overactive bladder, panic attacks, and depression presented to ER with complaint of weakness and shortness of breath. Patient reports history of overactive bladder and urinary incontinence and in past had tried oxybutynin however she reports it made her feel "spacey" so it was discontinued. Patient states 3 to 4 weeks ago restarted oxybutynin at 2.5 mg at bedtime and she seemed to be tolerating well so 4 to 5 days ago started taking 2.5 mg twice daily. Patient states today she feels "spacey". She did not have oxybutynin today. Patient states last night walked up the steps twice and felt fatigued and short of breath. Today with continued fatigue and shortness of breath with exertion. Today with some dizziness. Patient denies noted palpitations or chest pain. She reports in past when having issues with PVCs she would get fatigue and shortness of breath. She reports she took her pulse at home and it ranged from 40s to 90s, she reports trying to take her blood pressure however her machine is having difficulty. Denies fever/chills, diaphoresis, N/V/D/C, VENEGAS, syncope, vision changes, neck pain, orthopnea, cough, sore throat, choking, otalgia, rhinorrhea, abdominal pain, paresthesias, extremity weakness, extremity edema, rashes, urinary symptoms. Allergies Allergy/AdvReac Type Severity Reaction Status Date / Time erythromycin base Allergy Mild Unknown Verified 12/15/21 17:20 Home Medications Medication Instructions Recorded Confirmed Type aspirin 81 mg tablet,delayed 81 mg PO DAILY 02/08/21 12/15/21 History release cholecalciferol (vitamin D3) 50 50 mcg PO QPM 02/08/21 12/15/21 History mcg (2,000 unit) tablet magnesium oxide 400 mg PO QPM 02/08/21 12/15/21 History melatonin 5 mg tablet 5 mg PO HS 02/08/21 12/15/21 History riboflavin (vitamin B2) 400 mg 400 mg PO QPM 02/08/21 12/15/21 History tablet sertraline 25 mg tablet 25 mg PO QPM 02/08/21 12/15/21 History sertraline 50 mg tablet 50 mg PO QPM 02/08/21 12/15/21 History clopidogrel 75 mg tablet 75 mg PO QAM #30 tabs 02/11/21 12/15/21 Rx losartan 25 mg tablet 25 mg PO DAILY #30 tabs 02/11/21 12/15/21 Rx rosuvastatin 10 mg tablet (Crestor) 10 mg PO QAM #30 tabs 02/11/21 12/15/21 Rx calcium carbonate 500 mg calcium 500 mg PO QPM 12/15/21 12/15/21 History (1,250 mg) tablet estradiol 0.01% (0.1 mg/gram) 1 applic vaginal 3XWK 12/15/21 12/15/21 History vaginal cream metoprolol succinate 25 mg 12.5 mg PO QPM 12/15/21 12/15/21 History tablet,extended release 24 hr metoprolol succinate 25 mg 25 mg PO QAM 12/15/21 12/15/21 History tablet,extended release 24 hr oxybutynin chloride 5 mg 2.5 mg PO AMPM 12/15/21 12/15/21 History tablet,extended release 24 hr pantoprazole 20 mg tablet,delayed 20 mg PO DAILY 12/15/21 12/15/21 History release pregabalin 75 mg capsule 75 mg PO TID 12/15/21 12/15/21 History Past Med/Surg History Medical History (Updated 12/15/21 @ 22:28 by Beth Rodriges PA-C) CAD (coronary artery disease) Depression Dyslipidemia GERD (gastroesophageal reflux disease) HTN (hypertension) Mitral valve prolapse Reactive hypoglycemia Urinary incontinence Ventricular ectopic complex Surgical History History of cardiac catheterization History of cardiac radiofrequency ablation History of D&C History of lumbar spinal fusion Family History Other Heart disease Lung cancer Social History Smoking Status: Never smoker Tobacco Type: Cigarettes Second Hand Exposure: No; Do You Dip or Chew Tobacco: No; Tobacco Cessation Education Requested by Patient: No Hx Alcohol Use: No Hx Substance Use: No Preferred Language: Malay Communication Ability: Effective Maori Physiotherapist Required: No Beliefs That Will Affect Care: None marital status: Current Living Situation: Spouse Other Information That Helps Us Care for You: No Feels Safe at Home: Yes Safety Concerns: Feels Safe At This Time Assistive Devices: None Review of Systems Review of Systems: All systems reviewed & are unremarkable except as noted in HPI & below Physical Exam Physical Exam: General: no distress, WDWN Head: normocephalic, atraumatic Eyes: PERRL, EOM's intact, conjunctiva non-injected, anicteric ENT: normal inspection external ears, nose, mucous membranes moist Neck: supple, trachea midline Lungs: clear, no respiratory distress, no wheezing/rhonchi/rales CV: irregular, no murmur, no pretibial edema Abd: normal BS, soft, non-tender Ext: no cyanosis, no calf tenderness Neuro: A&O x 3, no focal deficits noted, normal affect Skin: warm, dry Results & Data Results & Data ([facility]) Vital Signs (Past 12 Hours) Vital Signs Temp Pulse Resp BP Pulse Ox O2 Del Method 12/15/21 16:50 64 18 98 12/15/21 16:40 66 26 H 12/15/21 16:30 67 20 12/15/21 16:20 57 L 17 99 12/15/21 16:10 58 L 18 98 12/15/21 16:01 59 L 15 98 12/15/21 16:01 148/70 H 12/15/21 16:00 60 14 98 12/15/21 16:00 145/76 H 12/15/21 15:50 65 18 99 12/15/21 15:40 65 21 99 12/15/21 15:24 68 22 98 12/15/21 15:24 139/51 L 12/15/21 15:16 77 20 98 12/15/21 15:29 70 18 99 Room Air 12/15/21 14:58 Room Air 12/15/21 14:58 Room Air 12/15/21 14:58 36.9 C 35 L 16 107/47 L 94 Laboratory Results Short CBC 12/15/21 Range/Units 15:14 WBC 8.01 (4.8-10.8) K/ul Hgb 13.4 (12.0-16.0) g/dl Hct 40.6 (34.1-44.9) % Plt Count 191 (130-400) K/uL BMP 12/15/21 15:14 Sodium 135 L Potassium 4.7 Chloride 104 Carbon Dioxide 25 BUN 36 H Creatinine 1.11 Glucose 93 Calcium 9.2 Liver Function 12/15/21 Range/Units 15:14 Total Bilirubin 0.5 (0.2-1.0) mg/dl AST 36 (13-39) U/L ALT 37 (7-52) U/L Alkaline Phosphatase 84 (34-104) U/L Albumin 4.4 (3.4-5.0) gm/dl Urine 12/15/21 Range/Units 16:55 Urine Color Yellow Urine Appearance Clear (Clear) Urine pH 7.5 (4.5-7.5) Ur Specific [place] 1.008 (1.000-1.030) Urine Protein Negative (Negative) Urine Glucose (UA) Negative (Negative) Diagnostic Findings Chest X-Ray 12/15/21 15:21 XR chest 1V portable HISTORY: weakness COMPARISON: Chest 02/08/2021. FINDINGS: Mild right apical pleural thickening, unchanged. There is mild enlargement of the cardiac silhouette. This is also similar to the prior study. No focal lung consolidations to suggest a pneumonia. No evidence for pulmonary edema. There are low lung volumes. No pleural effusions. No pneumothorax. There is mild elevation of the report right hemidiaphragm. IMPRESSION: 1. Stable mild cardiomegaly. 2. Low lung volumes with mild elevation of the right hemidiaphragm. ACT 112: Negative or not required by law. Electronically signed by: John Schuster M.D. 12/15/2021 3:51 PM ECG Rhythm: sinus rhythm Findings: + PVC (bigeminy ) Supervising Physician Co-Signing Physician Notes Pt was seen and examined. Agreed with Yarelis NAVAS exam, assessment and plan. 76 y/o F with PMH complex ventricular ectopy status post ablation x2, heart cath x2, no stents or CABG, migraine, dyslipidemia, GERD, overactive bladder, panic attacks, and depression presented to ER with complaint of weakness and shortness of breath. Pt said that she was started on oxybutynin that she felt make her spacey. She stopped it; but about 3 to 4 weeks ago she restarted oxybutynin at 2.5 mg at bedtime, then about 5 days ago she increased to BID after she was able to tolerate it once hS. she said today she did not fell well. She said that she felt fatigue and SOB. Denies any chest pain, fever and palpitation, chills, javi phoresis, N/V/D/C, VENEGAS, syncope, vision changes. EKG did not showed any acute ischemic changes. Will get a resting ECHO. Will hold oxybutynin. Will consult cardiology. Will monitor closely in tele. MD Ledy
[2021-12-15] MEDS ORDERED: ONDANSETRON INJ 2 MG/ML 2 ML VIAL IV PRN (18:34)
[2021-12-15] MEDS ORDERED: POLYETHYLENE (MIRALAX) 17 GM PACK PO PRN (18:34)
[2021-12-15] MEDS ORDERED: ACETAMINOPHEN 325 MG TAB PO PRN (18:34)
[2021-12-15] MEDS: PREGABALIN 75 MG CAP PO SCH (21:43)
[2021-12-15] MEDS: SERTRALINE HCL 50 MG TABLET PO SCH ×2 (21:44→21:47)
[2021-12-15] MEDS: ENOXAPARIN INJ 40 MG/0.4 ML SYR SQ SCH (21:44)
[2021-12-15] MEDS: CALCIUM CARBONATE 1250MG TAB PO SCH (21:44)
[2021-12-15] MEDS: METOPROLOL SUCC 25MG EXT REL TAB PO SCH (21:46)
[2021-12-15] MEDS: MELATONIN 3 MG TAB PO SCH (21:46)
[2021-12-15] MEDS: MAGNESIUM OXIDE 400 MG TAB PO SCH (21:46)
[2021-12-16 05:48] LABS: Hematocrit (blood only) 34.9 % (34.1-44.9); Hemoglobin 11.8 g/dl (12.0-16.0); Mean Corpuscular Hemoglobin 31.1 pg (25.0-34.0); Mean Corpuscular Hgb Conc 33.8 g/dL (32.0-36.0); Mean Corpuscular Volume 92.1 fL (80.0-100.0); Platelet Count 158 K/uL (130-400); RDW Coefficient of Variation 13.4 % (11.5-14.5); RDW Standard Deviation 44.7 fL (36.4-46.3); Red Blood Count 3.79 M/uL (3.93-5.22); White Blood Count 4.64 K/ul (4.8-10.8)
[2021-12-16 07:08] LABS: BUN Creatinine Ratio 26.7 (10-20); Calcium 9.1 mg/dl (8.5-10.1); Creatinine Clr Calc Pharmacy 37.9 ml/min; Est GFR (Non-African American) 45.7 ml/min; Potassium 4.5 mmol/L (3.5-5.1)
[2021-12-16] MEDS: PANTOprazole 40 MG TAB PO SCH (08:53)
[2021-12-16] MEDS: ASPIRIN 81 MG ECTAB PO SCH (08:53)
[2021-12-16] MEDS: CLOPIDOGREL BISULFATE 75 MG TAB PO SCH (08:53)
[2021-12-16] MEDS: LOSARTAN POTASSIUM 25 MG TAB PO SCH (08:53)
[2021-12-16] MEDS: ROSUVASTATIN CALCIUM 10 MG TAB PO SCH (08:53)
[2021-12-16] MEDS: PREGABALIN 75 MG CAP PO SCH ×3 (08:54→20:23)
[2021-12-16] MEDS ORDERED: METOPROLOL SUCC 25MG EXT REL TAB PO SCH (09:00)
--- NOTE | 2021-12-16 12:09 | Cardiology Consultation ---
Date of Consultation December 16, 2021 Assessment & Plan (1) Weakness: (2) SOB (shortness of breath): (3) Bigeminal rhythm: (4) Frequent PVCs: (5) CAD (coronary artery disease): Plan Patient is a complex 76-year-old female with ongoing issues as outlined. She presents now with generalized weakness fatigue as well as exertional dyspnea progressively worsening over the past 1 to 2 months. Recently acute symptoms and increasing ventricular ectopy, bigeminy in the past 1 week. Possible association with medication changes. No other acute findings. No chest pains or symptoms that suggest angina no evidence of myocardial infarction or injury. Echocardiogram demonstrates normal LV systolic function has not improved finding in comparison to prior study of 2020 Ventricular ectopy significantly improved since hospitalization with resting bradycardia persisting Suspect multifactorial complaints but bradycardia may be contributing superimposed on chronic ventricular ectopy and recent medication changes, increase of Lyrica, oxybutynin We will continue telemetry Increase activity Reduce metoprolol succinate to 12.5 mg every afternoon We will continue to follow in hospital History of Present Illness Reason for Consultation: Fatigue, bigeminy Requesting Physician: Dr. Silvestre Attending Physician: Christianne Silvestre MD History of Present Illness Patient is a 76-year-old female with cardiac issues as well outlined in outpatient notes 1. Chronic coronary artery disease, status post NSTEMI 02/08/2021, status post PUJA to the mid LAD, 80% stenosis for single-vessel disease a. Mixed etiology cardiomyopathy, LVEF 30-35%- discharged wearing life vest b. Return to normal LVEF 57% per echo 06/13/2021 2. Chronic ventricular ectopy, symptomatic, bigeminy status post PVC catheter ablation 11/11/2011 previously treated with flecainide Discontinued 01/2021 following non-STEMI 3. Prior nonischemic cardiomyopathy Patient presents this admission noting difficulties with increasing fatigue and noted bigeminy on EKGs and exam. History is notable for recent reinstitution of oxybutynin. Beta-ravindra increased earlier this spring She notes occasional chest spasm on the left axillary line. Notes no syncope or near syncope no worsening shortness of breath. Does note some mentation issues which she attributes to her urologic medications. No fevers chills or unexplained infections. No bleeding difficulties. Appetite and weight have been generally stable. Feels she has been more short of breath when walking and climbing stairs over the past months. Since admission no evidence of myocardial injury or infarct by enzyme. Patient is bradycardia and beta-ravindra has been held. Occasional bigeminy noted but less so overnight. Echocardiogram demonstrates normal LV systolic function without wall motion abnormality Allergies Allergy/AdvReac Type Severity Reaction Status Date / Time erythromycin base Allergy Mild Unknown Verified 12/15/21 17:20 Home Medications Medication Instructions Recorded Confirmed Type aspirin 81 mg tablet,delayed 81 mg PO DAILY 02/08/21 12/15/21 History release cholecalciferol (vitamin D3) 50 50 mcg PO QPM 02/08/21 12/15/21 History mcg (2,000 unit) tablet magnesium oxide 400 mg PO QPM 02/08/21 12/15/21 History melatonin 5 mg tablet 5 mg PO HS 02/08/21 12/15/21 History riboflavin (vitamin B2) 400 mg 400 mg PO QPM 02/08/21 12/15/21 History tablet sertraline 25 mg tablet 25 mg PO QPM 02/08/21 12/15/21 History sertraline 50 mg tablet 50 mg PO QPM 02/08/21 12/15/21 History clopidogrel 75 mg tablet 75 mg PO QAM #30 tabs 02/11/21 12/15/21 Rx losartan 25 mg tablet 25 mg PO DAILY #30 tabs 02/11/21 12/15/21 Rx rosuvastatin 10 mg tablet (Crestor) 10 mg PO QAM #30 tabs 02/11/21 12/15/21 Rx calcium carbonate 500 mg calcium 500 mg PO QPM 12/15/21 12/15/21 History (1,250 mg) tablet estradiol 0.01% (0.1 mg/gram) 1 applic vaginal 3XWK 12/15/21 12/15/21 History vaginal cream metoprolol succinate 25 mg 12.5 mg PO QPM 12/15/21 12/15/21 History tablet,extended release 24 hr metoprolol succinate 25 mg 25 mg PO QAM 12/15/21 12/15/21 History tablet,extended release 24 hr oxybutynin chloride 5 mg 2.5 mg PO AMPM 12/15/21 12/15/21 History tablet,extended release 24 hr pantoprazole 20 mg tablet,delayed 20 mg PO DAILY 12/15/21 12/15/21 History release pregabalin 75 mg capsule 75 mg PO TID 12/15/21 12/15/21 History Patient History Medical History (Updated 12/15/21 @ 22:28 by Beth Rodriges PA-C) CAD (coronary artery disease) Depression Dyslipidemia GERD (gastroesophageal reflux disease) HTN (hypertension) Mitral valve prolapse Reactive hypoglycemia Urinary incontinence Ventricular ectopic complex Surgical History History of cardiac catheterization History of cardiac radiofrequency ablation History of D&C History of lumbar spinal fusion Family History Other Heart disease Lung cancer Social History Smoking Status: Never smoker Tobacco Type: Cigarettes Second Hand Exposure: No; Do You Dip or Chew Tobacco: No; Tobacco Cessation Education Requested by Patient: No Hx Alcohol Use: No Hx Substance Use: No Preferred Language: Occitan Communication Ability: Effective International Marketing Specialist Required: No Beliefs That Will Affect Care: None marital status: Current Living Situation: Spouse Other Information That Helps Us Care for You: No Feels Safe at Home: Yes Safety Concerns: Feels Safe At This Time Assistive Devices: None Review of Systems Review of Systems: All systems reviewed & are unremarkable except as noted in HPI & below Physical Exam Constitutional: well developed and well nourished; no acute distress Eyes: PERRL, conjunctivae normal, anicteric sclerae ENMT: external ear and nose normal, oropharynx normal Neck: trachea midline, no thyromegaly Respiratory: normal respiratory effort, lungs clear to auscultation Cardiovascular: Rate/Rhythm: regular rate and regular rhythm Heart Sounds: normal S1 and normal S2; no murmur Vessels: no JVD Extremities: no edema Rare audible ectopy Gastrointestinal (Abdomen): normal bowel sounds, soft, nontender, no hepatosplenomegaly Musculoskeletal: no cyanosis or clubbing, extremities motor strength 5/5 Results & Data ([facility]) Vital Signs (Past 12 Hours) Vital Signs Temp Pulse Pulse Resp BP Pulse Ox O2 Del Method 12/16/21 08:00 53 L 12/16/21 07:32 36.5 C 50 L 16 126/58 L 95 Room Air 12/16/21 04:00 36.4 C L 55 L 18 133/73 96 Room Air Laboratory Results Laboratory Results - last 24 hr 12/15/21 12/15/21 12/15/21 15:14 15:14 15:14 WBC 8.01 RBC 4.27 Hgb 13.4 Hct 40.6 MCV 95.1 MCH 31.4 MCHC 33.0 RDW Std Deviation 47.0 H RDW Coeff of Pamela 13.6 Plt Count 191 MPV 10.9 Immature Gran % (Auto) 0.2 Neut % (Auto) 59.7 Lymph % (Auto) 28.6 [place] % (Auto) 8.4 Eos % (Auto) 2.5 Baso % (Auto) 0.6 Neut # (Auto) 4.78 Lymph # (Auto) 2.29 [place] # (Auto) 0.67 Eos # (Auto) 0.20 Baso # (Auto) 0.05 Immature Gran # (Auto) 0.02 Sodium 135 L Potassium 4.7 Chloride 104 Carbon Dioxide 25 Anion Gap 6 BUN 36 H Creatinine 1.11 Est Cr Clr Drug Dosing 39.8 Est GFR ( Amer) 55.9 Est GFR (Non-Af Amer) 48.2 BUN/Creatinine Ratio 32.4 H Glucose 93 Calcium 9.2 Magnesium 2.4 Total Bilirubin 0.5 AST 36 ALT 37 Alkaline Phosphatase 84 Troponin I High Sens 5.0 Total Protein 6.9 Albumin 4.4 Globulin 2.5 Albumin/Globulin Ratio 1.8 TSH 3.439 Urine Color Urine Appearance Urine pH Ur Specific [place] Urine Protein Urine Glucose (UA) Urine Ketones Urine Blood Urine Nitrite Urine Bilirubin Urine Urobilinogen Ur Leukocyte Esterase SARS-CoV-2, RNA, NAAT 12/15/21 12/15/21 12/16/21 16:10 16:55 05:18 WBC 4.64 L RBC 3.79 L Hgb 11.8 L Hct 34.9 MCV 92.1 MCH 31.1 MCHC 33.8 RDW Std Deviation 44.7 RDW Coeff of Pamela 13.4 Plt Count 158 MPV 11.0 Immature Gran % (Auto) Neut % (Auto) Lymph % (Auto) [place] % (Auto) Eos % (Auto) Baso % (Auto) Neut # (Auto) Lymph # (Auto) [place] # (Auto) Eos # (Auto) Baso # (Auto) Immature Gran # (Auto) Sodium Potassium Chloride Carbon Dioxide Anion Gap BUN Creatinine Est Cr Clr Drug Dosing Est GFR ( Amer) Est GFR (Non-Af Amer) BUN/Creatinine Ratio Glucose Calcium Magnesium Total Bilirubin AST ALT Alkaline Phosphatase Troponin I High Sens Total Protein Albumin Globulin Albumin/Globulin Ratio TSH Urine Color Yellow Urine Appearance Clear Urine pH 7.5 Ur Specific [place] 1.008 Urine Protein Negative Urine Glucose (UA) Negative Urine Ketones Negative Urine Blood Negative Urine Nitrite Negative Urine Bilirubin Negative Urine Urobilinogen Negative Ur Leukocyte Esterase Negative SARS-CoV-2, RNA, NAAT NEGATIVE 12/16/21 05:18 WBC RBC Hgb Hct MCV MCH MCHC RDW Std Deviation RDW Coeff of Pamela Plt Count MPV Immature Gran % (Auto) Neut % (Auto) Lymph % (Auto) [place] % (Auto) Eos % (Auto) Baso % (Auto) Neut # (Auto) Lymph # (Auto) [place] # (Auto) Eos # (Auto) Baso # (Auto) Immature Gran # (Auto) Sodium 144 D Potassium 4.5 Chloride 113 H Carbon Dioxide 24 Anion Gap 7 BUN 31 H Creatinine 1.16 Est Cr Clr Drug Dosing 37.9 Est GFR ( Amer) 53.0 Est GFR (Non-Af Amer) 45.7 BUN/Creatinine Ratio 26.7 H Glucose 88 Calcium 9.1 Magnesium Total Bilirubin AST ALT Alkaline Phosphatase Troponin I High Sens Total Protein Albumin Globulin Albumin/Globulin Ratio TSH Urine Color Urine Appearance Urine pH Ur Specific [place] Urine Protein Urine Glucose (UA) Urine Ketones Urine Blood Urine Nitrite Urine Bilirubin Urine Urobilinogen Ur Leukocyte Esterase SARS-CoV-2, RNA, NAAT Diagnostic Findings Echocardiogram 12/16/2021 Ejection fraction 55 to 60% without wall motion abnormality
--- NOTE | 2021-12-16 15:45 | Hospitalist Progress Note ---
Date of Service December 16, 2021 Assessment & Plan (1) Weakness: (2) SOB (shortness of breath): (3) Frequent PVCs: (4) Bigeminal rhythm: Plan 76 y/o F with PMH of complex ventricular ectopy status post ablation x2, heart cath x2, no stents or CABG, migraine, dyslipidemia, GERD, overactive bladder, panic attacks, and depression presented to ER 12/15 with complaint of weakness and shortness of breath with exertion x 1 day [employer]. 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 She is being managed for the following: (1) Weakness: (2) SOB (shortness of breath): Pt presented w/ weakness and SOB w/ exertion. In ER noted to have PVCs and bigeminy pattern. Initial high-sensitivity troponin negative, no significant electrolyte abnormality Admitting CXR with mild stable cardiomegaly, no acute findings. DDX: med side effect, PVCs, arrhythmia, symptomatic bradycardia, tachybradycardia syndrome 12/16 echo: EF 55 to 60%, grade 1 diastolic dysfunction, normal-sized LV, mild concentric LVH. Discussed with cardiology, plan to optimize her cardiac medication. Appreciate recommendation. Continue telemetry, hold oxybutynin, follow labs and electrolytes. (3) Frequent PVCs: (4) Ventricular ectopic complex: History complex ventricular ectopy s/p ablation x2 Follows with Dr. Villareal At admission, noted PVCs bigeminy pattern on candy butcher on telemetry, cardiology on board, appreciate recommendation. Other chronic medical conditions: CAD status post PUJA to LAD in 2020, cardiomyopathy [EF 44% in 2020, 57% in May 2021], HTN, HLD, depression, GERD --->> continue with resume home medications when appropriate. Urinary incontinence: Hold oxybutynin. DNR/DNI Lovenox subcu Follows Dr. Jean-Baptiste for routine care Admission and Anticipated Discharge Date Admission Date: December 15, 2021 Subjective Patient seen and examined at bedside for follow-up of weakness, shortness of breath and frequent PVCs. She came in 12/15 with complaint of weakness and shortness of breath during climbing stairs. Patient was lying in bed, on room air, NAD, denies new acute event overnight, reports eating okay, reports feeling similar as yesterday and frequently feels pounding sensation in her chest. Patient denies any fever/cough/sore throat/chest pain/belly pain/acute changes in her bowel or bladder habits. Per RN, no new acute event overnight. Physical Exam Physical Exam: GENERAL: Alert and oriented x3. NAD, on RA. HEENT: No pallor, no icterus. Pupils equal, round and reactive to light. Oral mucosa moist. NECK: No JVD, no neck masses. HEART: S1 and S2 heard. Regular rate and rhythm. No murmur, no gallop. RESPIRATORY SYSTEM: Normal AP diameter. No accessory muscle use. No wheezing, no crackles. ABDOMEN: Soft, bowel sounds present, nontender, no distention. CENTRAL NERVOUS SYSTEM: No facial droop. Speech is clear. Obeys simple commands. Moves extremities. EXTREMITIES: No edema, no erythema seen. Results & Data Results & Data ([facility]) Vital Signs (Past 12 Hours) Vital Signs Temp Pulse Pulse Resp BP BP Pulse Ox 12/16/21 12:18 36.6 C 67 16 121/65 96 12/16/21 08:00 53 L 12/16/21 07:32 36.5 C 50 L 16 126/58 L 95 12/16/21 04:00 36.4 C L 55 L 18 133/73 96 O2 Del Method 12/16/21 12:18 Room Air 12/16/21 08:00 12/16/21 07:32 Room Air 12/16/21 04:00 Room Air
[2021-12-16] MEDS: MAGNESIUM OXIDE 400 MG TAB PO SCH (20:23)
[2021-12-16] MEDS: CALCIUM CARBONATE 1250MG TAB PO SCH (20:23)
[2021-12-16] MEDS: MELATONIN 3 MG TAB PO SCH (20:23)
[2021-12-16] MEDS: ENOXAPARIN INJ 40 MG/0.4 ML SYR SQ SCH (20:24)
[2021-12-16] MEDS: SERTRALINE HCL 50 MG TABLET PO SCH ×2 (20:24)
[2021-12-16] MEDS: METOPROLOL SUCC 25MG EXT REL TAB PO SCH (20:24)
--- NOTE | 2021-12-16 22:45 | Electrocardiogram Report ---
Test Reason : Blood Pressure : / mmHG Vent. Rate : 053 BPM Atrial Rate : 053 BPM P-R Int : 182 ms QRS Dur : 114 ms QT Int : 464 ms P-R-T Axes : 051 -29 016 degrees QTc Int : 435 ms Sinus bradycardia with Premature atrial complexes Nonspecific T wave abnormality When compared with ECG of 15-DEC-2021 15:14, Premature ventricular complexes are no longer Present Premature atrial complexes are now Present Confirmed by Fredrick Ken ([id number]) on 12/16/2021 10:44:40 PM Referred By: REFERRED SELF Confirmed By:Fredrick Ken
[2021-12-17] MEDS: LOSARTAN POTASSIUM 25 MG TAB PO SCH (08:46)
[2021-12-17] MEDS: ASPIRIN 81 MG ECTAB PO SCH (08:46)
[2021-12-17] MEDS: PANTOprazole 40 MG TAB PO SCH (08:46)
[2021-12-17] MEDS: ROSUVASTATIN CALCIUM 10 MG TAB PO SCH (08:47)
[2021-12-17] MEDS: CLOPIDOGREL BISULFATE 75 MG TAB PO SCH (08:47)
[2021-12-17] MEDS: PREGABALIN 75 MG CAP PO SCH (08:50)
[2021-12-17 12:06] LABS: Hematocrit (blood only) 36.2 % (34.1-44.9); Hemoglobin 12.1 g/dl (12.0-16.0); Mean Corpuscular Hemoglobin 30.9 pg (25.0-34.0); Mean Corpuscular Hgb Conc 33.4 g/dL (32.0-36.0); Mean Corpuscular Volume 92.3 fL (80.0-100.0); Mean Platelet Volume 10.8 fL (9.4-12.3); Platelet Count 168 K/uL (130-400); RDW Coefficient of Variation 13.3 % (11.5-14.5); RDW Standard Deviation 45.1 fL (36.4-46.3); Red Blood Count 3.92 M/uL (3.93-5.22); White Blood Count 4.74 K/ul (4.8-10.8)
[2021-12-17 12:43] LABS: BUN Creatinine Ratio 34.1 (10-20); Calcium 9.1 mg/dl (8.5-10.1); Creatinine Clr Calc Pharmacy 48.4 ml/min; Est GFR (Non-African American) 61.3 ml/min; Magnesium 2.1 mg/dl (1.7-2.4); Potassium 4.3 mmol/L (3.5-5.1)
--- NOTE | 2021-12-17 12:52 | Cardiology Progress Note ---
Date of Service December 17, 2021 Assessment & Plan (1) Weakness: (2) SOB (shortness of breath): (3) Bigeminal rhythm: (4) Frequent PVCs: (5) CAD (coronary artery disease): Plan Patient is a complex 76-year-old female with ongoing issues as outlined. She presents now with generalized weakness fatigue as well as exertional dyspnea progressively worsening over the past 1 to 2 months. Recently acute symptoms and increasing ventricular ectopy, bigeminy in the past 1 week. Possible association with medication changes. No other acute findings. No chest pains or symptoms that suggest angina no evidence of myocardial infarction or injury. Echocardiogram demonstrates normal LV systolic function has not improved finding in comparison to prior study of 2020 Ventricular ectopy significantly improved since hospitalization with resting bradycardia persisting Suspect multifactorial complaints but bradycardia may be contributing superimposed on chronic ventricular ectopy and recent medication changes, increase of Lyrica, oxybutynin Patient hemodynamically stable without further significant arrhythmias. Discussed management in detail with patient Recommendations metoprolol succinate at 12.5 mg every afternoon Reduce Lyrica to 50 mg p.o. 3 times daily Oxybutynin once per day Discussed cardiac evaluation would recommend follow-up stress nuclear imaging. Assess current complaints as well as optimize future therapies. If study negative would discontinue antiplatelet therapy with clopidogrel. Allow patient to proceed with management of chronic back issues, injection therapy Stress nuclear imaging to be ordered as outpatient patient to be discharged in interim Admission and Anticipated Discharge Date Admission Date: December 15, 2021 Subjective Patient was seen and examined, chart, medications, telemetry reviewed. Slept well last night feels somewhat stronger this morning no syncope or near syncope. Telemetry reveals sinus rhythm with ventricular ectopy less bigeminy. Still relatively bradycardia No fevers chills, appetite is good Physical Exam Constitutional: well developed and well nourished; no acute distress Eyes: PERRL, conjunctivae normal, anicteric sclerae ENMT: external ear and nose normal, oropharynx normal Neck: trachea midline, no thyromegaly Respiratory: normal respiratory effort, lungs clear to auscultation Cardiovascular: Rate/Rhythm: regular rate and regular rhythm Heart Sounds: normal S1 and normal S2; no murmur Vessels: no JVD Extremities: no edema Gastrointestinal (Abdomen): normal bowel sounds, soft, nontender, no hepatosplenomegaly Musculoskeletal: no cyanosis or clubbing, extremities motor strength 5/5 Results & Data ([facility]) Vital Signs (Past 12 Hours) Vital Signs Temp Pulse Pulse Resp BP Pulse Ox O2 Del Method 12/17/21 11:21 36.6 C 57 L 18 138/71 94 Room Air 12/17/21 08:00 58 L 12/17/21 07:39 36.6 C 65 18 125/74 96 Room Air 12/17/21 03:12 36.4 C L 65 16 104/60 95 Room Air Laboratory Results Laboratory Results - last 24 hr 12/17/21 12/17/21 05:49 11:39 WBC 4.74 L RBC 3.92 L Hgb 12.1 Hct 36.2 MCV 92.3 MCH 30.9 MCHC 33.4 RDW Std Deviation 45.1 RDW Coeff of Pamela 13.3 Plt Count 168 MPV 10.8 Sodium 137 Potassium 4.3 Chloride 107 Carbon Dioxide 25 Anion Gap 5 BUN 31 H Creatinine 0.91 Est Cr Clr Drug Dosing 48.4 Est GFR ( Amer) 71.0 Est GFR (Non-Af Amer) 61.3 BUN/Creatinine Ratio 34.1 H Glucose 80 Calcium 9.1 Magnesium 2.1
--- NOTE | 2021-12-17 13:49 | Discharge Summary ---
Discharge Summary Date of Service December 17, 2021 Notes For Next Care Provider Patient will need follow-up in a week time for transition of care evaluation. Will likely need blood test CBC/CMP/magnesium level. Patient was admitted for weakness/shortness of breath considered likely from symptomatic bradycardia on top of her chronic ventricular ectopy. Her Lyrica has been reduced to 50 Mg 3 times a day, metoprolol has been reduced to 12.5 Mg afternoon only, oxybutynin has been reduced to 2.5 Mg daily only. She will likely need follow-up with urology as an outpatient. She will need follow-up with cardiology and likely will get a stress test on coming Saturday. Likely an apneic event noted by her granddaughter at bedside when she woke up catching her breath, patient will likely benefit from sleep study as an outpatient. Medication Changes From Visit Lyrica has been reduced to 50 Mg 3 times a day. Metoprolol has been reduced to 12.5 mg afternoon only. Oxybutynin has been reduced to 2.5 Mg daily. Admission HPI Per Admitting Provider Patient is 76 y/o F with PMH complex ventricular ectopy status post ablation x2, heart cath x2, no stents or CABG, migraine, dyslipidemia, GERD, overactive bladder, panic attacks, and depression presented to ER with complaint of weakness and shortness of breath. Patient reports history of overactive bladder and urinary incontinence and in past had tried oxybutynin however she reports it made her feel "spacey" so it was discontinued. Patient states 3 to 4 weeks ago restarted oxybutynin at 2.5 mg at bedtime and she seemed to be tolerating well so 4 to 5 days ago started taking 2.5 mg twice daily. Patient states today she feels "spacey". She did not have oxybutynin today. Patient states last night walked up the steps twice and felt fatigued and short of breath. Today with continued fatigue and shortness of breath with exertion. Today with some dizziness. Patient denies noted palpitations or chest pain. She reports in past when having issues with PVCs she would get fatigue and shortness of breath. She reports she took her pulse at home and it ranged from 40s to 90s, she reports trying to take her blood pressure however her machine is having difficulty. Denies fever/chills, diaphoresis, N/V/D/C, VENEGAS, syncope, vision changes, neck pain, orthopnea, cough, sore throat, choking, otalgia, rhinorrhea, abdominal pain, paresthesias, extremity weakness, extremity edema, rashes, urinary symptoms. Admission Exam Per Admitting Provider General: no distress, WDWN Head: normocephalic, atraumatic Eyes: PERRL, EOM's intact, conjunctiva non-injected, anicteric ENT: normal inspection external ears, nose, mucous membranes moist Neck: supple, trachea midline Lungs: clear, no respiratory distress, no wheezing/rhonchi/rales CV: irregular, no murmur, no pretibial edema Abd: normal BS, soft, non-tender Ext: no cyanosis, no calf tenderness Neuro: A&O x 3, no focal deficits noted, normal affect Skin: warm, dry Principal Dx & Hospital Course #1 = Principal Diagnosis (1) SOB (shortness of breath): (2) Weakness: Plan 76 y/o F with PMH of complex ventricular ectopy status post ablation x2, heart cath x2, no stents or CABG, migraine, dyslipidemia, GERD, overactive bladder, panic attacks, and depression presented to ER 12/15 with complaint of weakness and shortness of breath 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 She stated that she restarted oxybutynin couple weeks ago [employer]. She was managed for the following: (1) Weakness: (2) SOB (shortness of breath): Likely symptomatic bradycardia Pt presented w/ weakness and SOB w/ exertion. In ER noted to have PVCs and bigeminy pattern. Initial high-sensitivity troponin negative, no significant electrolyte abnormality Admitting CXR with mild stable cardiomegaly, no acute findings. DDX: med side effect, PVCs, arrhythmia, symptomatic bradycardia, tachybradycardia syndrome 12/16 echo: EF 55 to 60%, grade 1 diastolic dysfunction, normal-sized LV, mild concentric LVH. Cardiology evaluated, metoprolol decreased to 12.5 Mg afternoon only. Continue Lyrica at reduced dose of 50 Mg 3 times a day and oxybutynin 2.5 mg daily. Follow-up with cardiology as an outpatient and possible stress test on coming Saturday. (3) Frequent PVCs: (4) Ventricular ectopic complex: History complex ventricular ectopy s/p ablation x2 Follows with Dr. Villareal At admission, noted PVCs bigeminy pattern on EKG Cardiology evaluated, see above. Likely apneic event noted by her granddaughter 12/16 evening per patient, she will benefit from sleep study as an outpatient. Patient made aware. Patient to communicate with her PCP regarding this. Other chronic medical conditions:CAD status post PUJA to LAD in 2020, cardiomyopathy [EF 44% in 2020, 57% in May 2021], HTN, HLD, depression, GERD --->> continue with resume home medications when appropriate. Urinary incontinence:Oxybutynin 2.5 Mg daily, patient to follow-up with urology as an outpatient. DNR/DNI Follows Dr. Jean-Baptiste for routine care Patient being discharged home with following instruction at the point of discharge: Follow-up with your primary care physician within 1 week time. And you will likely need blood test CBC/CMP/magnesium level drawn. For concerns of symptomatic bradycardia on top of your chronic ventricular ectopy, cardiology evaluated you and decreased your metoprolol succinate to 12.5 mg every afternoon only. Your Lyrica has been reduced to 50 Mg 3 times a day and take your oxybutynin at 2.5 Mg once a day. Advised to follow-up with urology as an outpatient for ongoing management of your overactive bladder. For likely apneic event noted by your granddaughter at bedside on 12/16 evening, on the background of multiple heart problems, recommend to have sleep study done as an outpatient. Please coordinate with your primary care physician for setting up sleep study. Follow-up with cardiology as an outpatient and maintain your stress test scheduled for Saturday. Take your medications as prescribed. Updated Medication List Medication Instructions Recorded Confirmed Type aspirin 81 mg tablet,delayed 81 mg PO DAILY 02/08/21 12/15/21 History release cholecalciferol (vitamin D3) 50 50 mcg PO QPM 02/08/21 12/15/21 History mcg (2,000 unit) tablet magnesium oxide 400 mg PO QPM 02/08/21 12/15/21 History melatonin 5 mg tablet 5 mg PO HS 02/08/21 12/15/21 History riboflavin (vitamin B2) 400 mg 400 mg PO QPM 02/08/21 12/15/21 History tablet sertraline 25 mg tablet 25 mg PO QPM 02/08/21 12/15/21 History sertraline 50 mg tablet 50 mg PO QPM 02/08/21 12/15/21 History clopidogrel 75 mg tablet 75 mg PO QAM #30 tabs 02/11/21 12/15/21 Rx losartan 25 mg tablet 25 mg PO DAILY #30 tabs 02/11/21 12/15/21 Rx rosuvastatin 10 mg tablet (Crestor) 10 mg PO QAM #30 tabs 02/11/21 12/15/21 Rx calcium carbonate 500 mg calcium 500 mg PO QPM 12/15/21 12/15/21 History (1,250 mg) tablet estradiol 0.01% (0.1 mg/gram) 1 applic vaginal [id number] 12/15/21 12/15/21 History vaginal cream metoprolol succinate 25 mg 12.5 mg PO QPM 12/15/21 12/15/21 History tablet,extended release 24 hr pantoprazole 20 mg tablet,delayed 20 mg PO DAILY 12/15/21 12/15/21 History release oxybutynin chloride 5 mg 2.5 mg PO DAILY #30 tabs 12/17/21 12/15/21 Rx tablet,extended release 24 hr pregabalin 50 mg capsule (Lyrica) 50 mg PO TID #90 caps 12/17/21 Rx Hospital Stay Data Consultations 12/15/21 16:48 ED Decision to Admit Stat 12/16/21 08:00 Consult Cardiology Routine Pending Results Patient Have Any Pending Studies at Discharge: No Discharge Instructions Given to Patient (Per Discharging Provider) Follow-up with your primary care physician within 1 week time. And you will likely need blood test CBC/CMP/magnesium level drawn. For concerns of symptomatic bradycardia on top of your chronic ventricular ectopy, cardiology evaluated you and decreased your metoprolol succinate to 12.5 mg every afternoon only. Your Lyrica has been reduced to 50 Mg 3 times a day and take your oxybutynin at 2.5 Mg once a day. Advised to follow-up with urology as an outpatient for ongoing management of your overactive bladder. For likely apneic event noted by your granddaughter at bedside on 12/16 evening, on the background of multiple heart problems, recommend to have sleep study done as an outpatient. Please coordinate with your primary care physician for setting up sleep study. Follow-up with cardiology as an outpatient and maintain your stress test scheduled for Saturday. Take your medications as prescribed. Total Time Total Time Spent Total Time Spent (In Minutes): 45
[2021-12-17] MEDS ORDERED: PREGABALIN 50 MG CAP PO SCH (14:00)
== END 2021-12-17 14:33 | disposition home or self-care (01) ==
LOC: ED 14:57 → 4W 14:57 → SUATTDRO 17:22 → 4W 18:38